=== PATIENT | male | born 1960 | race Caucasian/White ===

== ENCOUNTER → 2018-02-09 | Outpatient (CLI) | payer BC ==
[~2018-02-09] MED LIST: ASPIR 8181 MG PO; ASPIRIN EC81 MG PO; FENOGLIDE120 MG PO; GABAPENTIN300 MG PO; GLIPIZIDE10 MG PO; HYDROCHLOROTHIA25 MG PO; LANTUS100 UNIT/1 SQ; LANTUS100 UNITS/ SQ; LEVOTHYROXINE137 MCG PO; LEVOTHYROXINE150 MCG PO; LISINOPRIL-HCT1 EAC2 PO; METFORMIN HCL500 M2 PO; METFORMIN HCL500 MG PO; METOPROLOL ER PO; METOPROLOL SUCC50 MG PO; METOPROLOL TART25 MG PO; MONTELUKAST SOD10 MG PO; NEURONTIN300 MG PO; NEXIUM40 MG PO; OMEPRAZOLE20 MG PO; OMEPRAZOLE40 MG PO; PEPCID20 MG PO; PRISTIQ ER50 MG PO; REGLAN10 MG PO; SIMVASTATIN20 MG PO; SYN112 PO; ZOLOFT50 MG PO
--- NOTE | 2018-02-09 11:48 | Diagnostic Imaging Report ---
PROCEDURE: Frontal and lateral views of the chest. COMPARISON: Patients [facility], , CHEST 2 VIEWS, 03/21/2016, 12:10. INDICATIONS: PNEUMONIA FINDINGS: Lines/tubes: None. Lungs: The lungs are well inflated and clear. There is no evidence of pneumonia or pulmonary edema. Pleura: There is no pleural effusion or pneumothorax. Heart and mediastinum: The heart and the mediastinum are normal. Bones: No acute bony abnormality. Mild thoracic DISH. IMPRESSION: 1. No acute cardiopulmonary disease. Ras White M.D. Dictated by: Ras White M.D. on 02/09/2018 at 11:50 Electronically approved by: Ras White M.D. on 02/09/2018 at 11:50
== END ==
LOC: RAD 10:32
PROVIDERS: ATTEND Family Medicine
DX: J18.9 Pneumonia, unspecified organism (principal)
CPT/HCPCS: 71046

== ENCOUNTER 2018-09-29 14:19 | Emergency (ER) | payer BC ==
[~2018-09-29] VITALS: Ht 177.8 cm; Wt 117.9 kg
--- OUTSIDE RECORDS SUMMARY | 2018-09-29 14:22 | XMS REPORT ---
Author Author [facility] Address Unknown Phone Unavailable Care Team Providers Care Seamless Tube Drawer Name Role Phone SABRINA KING Unavailable Unavailable Problems This patient has no known problems. Allergies, Adverse Reactions, Alerts This patient has no known allergies or adverse reactions. Medications This patient has no known medications. Results Test Description Test Time Test Comments Text Results Atomic Results Result Comments CHEST 2 VIEWS [place] [address] Patient Name: HERNANDEZ DE LOS SANTOS MR #: [id number] : 1960 Age/Sex: 57/M Req #: [id number] Adm Physician: Ordered by: CHRISTINE ROMO, SABRINA Moore MD Report #: [id number] Location: RAD Room/Bed: Procedure: [id number] DX/CHEST 2 VIEWS Exam Date: 02/09/18 Exam Time: 1035 REPORT STATUS: Signed PROCEDURE: Frontal and lateral views of the chest. COMPARISON: [facility], , CHEST 2 VIEWS, 03/21/2016, 12:10. INDICATIONS: PNEUMONIA FINDINGS: Lines/tubes: None. Lungs: The lungs are well inflated and clear. There is no evidence of pneumonia or pulmonary edema. Pleura: There is no pleural effusion or pneumothorax. Heart and mediastinum: The heart and the mediastinum are normal. Bones: No acute bony abnormality. Mild thoracic DISH. IMPRESSION: 1. No acute cardiopulmonary disease. Ras Davison M.D. Dictated by: Ras Davison M.D. on 02/09/2018 at 11:50 Electronically approved by: Ras Davison M.D. on 02/09/2018 at 11:50 Dictated By: CELESTINE DAVISON MD, MD 1150 Transcribed By: FELIPE on 02/09/18 1150 COPY TO: SABRINA KING
[2018-09-29 15:18] LABS: STREPTOCOCCUS GRP A ANTIGEN NEGATIVE (NEGATIVE)
[2018-09-29 15:28] LABS: INFLUENZAE A&B ANTIGEN (RAPID) NEGATIVE (NEGATIVE)
[2018-09-29] MEDS ORDERED: IPRATROPIUM BROMIDE 0.02% 2.5 ML NEB NEB STA (16:26)
[2018-09-29] MEDS ORDERED: ALBUTEROL SULF 0.083% NEB SOLN 3 ML NEB NEB STA (16:26)
[2018-09-29] MEDS ORDERED: DEXAMETHASONE SOD PHOS 10 MG/1 ML VIAL IM ONE (16:30)
--- NOTE | 2018-09-29 16:52 | Diagnostic Imaging Report ---
EXAMINATION: PA and lateral views of the chest. COMPARISON: 02/09/2018 CLINICAL HISTORY: Cough DISCUSSION: Lungs are well-inflated. No focal airspace consolidation, pleural effusion, or pneumothorax. Cardiomediastinal contour and pulmonary vasculature are within normal limits. No acute osseous abnormalities. IMPRESSION: No acute cardiopulmonary abnormalities. Signed by: Dr. Carson Chauhan M.D. on 09/29/2018 4:49 PM
[2018-09-29 17:39] VITALS: BP 118/88
== END 2018-09-29 17:38 | disposition home or self-care (01) ==
LOC: ER 14:19
DX: R50.9 Fever, unspecified (principal); R05 Cough; J20.9 Acute bronchitis, unspecified
CPT/HCPCS: 71046; 83518; 87070; 87400; 99283; J1100

== ENCOUNTER 2018-10-02 09:46 | Inpatient (IN) | payer BC, OTHER ==
[2018-10-02] VITALS (8 sets, daily range): BP systolic 98–115; BP diastolic 64–72
[~2018-10-02] VITALS: Ht 177.8 cm; Wt 128.8 kg
[2018-10-02] MEDS ORDERED: SODIUM CHLORIDE 0.9% 1000ML 1,000 ML IV SCH (10:15)
[2018-10-02] MEDS: SODIUM CHLORIDE 0.9% 1000ML 1,000 ML IV SCH ×5 (11:12→20:40)
--- NOTE | 2018-10-02 11:13 | NUR ---
UPDATED PT/FM PLAN OF CARE.
[2018-10-02] MEDS ORDERED: ALBUTEROL/IPRATROPIUM 3 ML NEB NEB ONE (11:15)
--- NOTE | 2018-10-02 11:57 | Diagnostic Imaging Report ---
EXAM: CT Chest WITHOUT contrast INDICATION: Hemoptysis COMPARISON: 09/29/2018 radiograph, no report available TECHNIQUE: The Chest was scanned utilizing a multidetector helical scanner without the use of IV contrast. Coronal and sagittal reformations were obtained. Reformatted axial MIP images were obtained and reviewed. IV CONTRAST: None COMPLICATIONS: None RADIATION DOSE: Total DLP: 630 mGy*cm Estimated effective dose: (DLP x 0.015 x size factor) mSv CTDIvol has been reviewed. It is below the limits set by the Radiation Protocol Committee (RPC). Appropriate CT dose reduction techniques were utilized. FINDINGS: Lines and Tubes: None. Lower Neck: The visualized thyroid gland is grossly unremarkable with no suspicious or significant nodule identified. Heart and Great Vessels: The aorta and main pulmonary artery measure 37 and 32 mm. respectively. No pericardial effusion. Minimal coronary vascular calcifications, most notably LAD. Lymph Nodes: Small mediastinal lymph nodes not enlarged by size criteria. The hilar regions are sub-optimally evaluated given lack of IV contrast. Lungs: There is no pneumothorax or pleural effusion. Trachea and central bronchi are unremarkable. There is a 68 x 46 x 81 mm focal masslike area of consolidation with air bronchograms in the medial aspect of the right lower lobe. Superimposed scattered mild groundglass and linear opacities as well as septal thickening are present in the lung bases, asymmetric to the right. Upper abdomen: Hepatic steatosis. Presumed partially visualized atrophic right kidney. Bones and Soft Tissues: Degenerative changes spine. Gynecomastia. IMPRESSION: 1. Focal masslike area of consolidation with air bronchograms medial aspect right lower lobe presumably pneumonia. This is not well appreciated on 09/29/2018 radiograph, presumably due to retrocardiac/paraspinal position. Clinical/laboratory correlation and short interval CT follow-up recommended as underlying malignancy difficult to exclude. 2. Hepatic steatosis. 3. Gynecomastia. Signed by: Dr. Jacob Billingsley MD on 10/02/2018 11:54 AM
[2018-10-02] MEDS ORDERED: CEFTRIAXONE SOD 1 GM VIAL IV SCH (12:00)
[2018-10-02] MEDS ORDERED: CEFTRIAXONE SOD 1 GM/NS 50 ML 50 ML IV SCH (12:00)
[2018-10-02] MEDS ORDERED: AZITHROMYCIN 500MG/NS 250 ML 250 ML IV ONE (12:00)
[2018-10-02] MEDS ORDERED: DEXTROSE 50% SYRINGE 50 ML IV PRN (12:00)
[2018-10-02] MEDS ORDERED: LEVOFLOXACIN 750MG/DEXTROSE PREMIX BAG 150ML IV SCH (12:00)
--- NOTE | 2018-10-02 12:30 | NUR ---
[facility] called for transport.
[2018-10-02] MEDS: IPRATROPIUM BROMIDE 0.02% 2.5 ML NEB NEB SCH ×2 (12:37→19:25)
[2018-10-02] MEDS ORDERED: LEVOFLOXACIN 750MG/D5W 150ML 150 ML IV SCH ×2 (13:00→15:00)
--- NOTE | 2018-10-02 13:00 | NUR ---
per md, hold off intubation at this time. concern pt will drop bp more. pt to transfer to [facility] to icu and stat bipap 25/04 @ 40% with rate of 14. per md to hold off on pressors to see if bp comes up after 4th liter bolus.
--- NOTE | 2018-10-02 13:22 | NUR ---
hand off report to [facility].
--- NOTE | 2018-10-02 13:36 | NUR ---
leaving for [facility]
[2018-10-02 14:47] LABS: ABG PCO2 29 mmHg (41-51); ABG PH 7.38 (7.31-7.41); ABG PO2 105 mmHg (80-105)
[2018-10-02 14:48] LABS: ABG HCO3 17 mmol/L (23-28)
[2018-10-02] MEDS ORDERED: ALBUTEROL SULF 0.083% NEB SOLN 3 ML NEB NEB SCH (15:00)
[2018-10-02] MEDS ORDERED: HYDROCORTISONE SOD SUCCINATE 100 MG VIAL IV NR (16:00)
[2018-10-02 16:25] LABS: BASOPHILS # (AUTO) 0.1 (0.0-0.1); BASOPHILS % 0.3 % (0.0-1.0); EOSINOPHILS % 0.1 % (0.0-6.0); HEMATOCRIT 30.1 % (38.2-49.6); HEMOGLOBIN 10.4 g/dL (14.0-18.0); LYMPHOCYTES # (AUTO) 1.4 (1.0-3.2); LYMPHOCYTES % 9.1 % (18.0-39.1); MEAN CORPUSCULAR HEMOGLOBIN 31.7 pg (28-32); MEAN CORPUSCULAR HGB CONC 34.6 g/dL (31-35); MEAN CORPUSCULAR VOLUME 91.8 fL (81-99); MONOCYTES % 6.4 % (4.4-11.3); NEUTROPHILS # (AUTO) 13.2 (2.1-6.9); NEUTROPHILS % 83.6 % (38.7-80.0); PLATELET COUNT 144 x10e3/uL (140-360); RED BLOOD COUNT 3.28 x10e6/uL (4.3-5.7); RED CELL DISTRIBUTION WIDTH 13.4 % (11.7-14.4)
[2018-10-02] MEDS: METOCLOPRAMIDE HCL 10 MG TAB PO SCH ×2 (16:25→20:21)
[2018-10-02] MEDS: GABAPENTIN 300 MG CAP PO SCH (16:25)
[2018-10-02] MEDS ORDERED: INSULIN DETEMIR 100 UNIT/ML PEN SQ SCH (17:00)
--- NOTE | 2018-10-02 17:02 | History and Physical ---
CHIEF COMPLAINT: Hemoptysis. HISTORY OF PRESENT ILLNESS: The patient is a 58-year-old man. He reports some dyspnea and cough for several days. He went to the emergency department on the and had a negative chest x-ray. He received some antibiotics but continued to have symptoms. Yesterday he started having hemoptysis. He went to the [facility] emergency department and had a CT scan of the chest that showed a lower lobe pneumonia. PAST MEDICAL HISTORY: 1. Diabetes requiring insulin. 2. History of pneumonia in the past. 3. Hypertension. 4. Multiple myeloma. 5. Hypothyroidism. PAST SURGICAL HISTORY: Noncontributory. SOCIAL HISTORY: He quit smoking 3 years ago. He was previously a drinker but has not been drinking actively. FAMILY HISTORY: Family history is significant for diabetes, hypertension and cancer. REVIEW OF SYSTEMS: He does not report any fevers. He does not have headache or neck pain. There is no sore throat. He has no swollen glands. He does not report any chest pain. He does note some cough and difficulty breathing. He had some hemoptysis. He denies any nausea or vomiting. He is not having any leg edema. PHYSICAL EXAMINATION: VITAL SIGNS: The patient is afebrile. The pulse is 114, and the respiratory rate is 26. The temperature was 101.3. HEENT: Examination shows no facial swelling or erythema. The oropharynx is normal. LYMPHATIC: Examination shows no submandibular, cervical or supraclavicular adenopathy. CARDIOVASCULAR: Exam reveals a regular rate and rhythm with a normal S1 and S2. RESPIRATORY: Auscultation of the lungs reveals decreased breath sounds at the bases. There is no wheezing. ABDOMEN: Soft and nontender. There is no rebound or guarding. EXTREMITIES: Examination shows no leg edema or calf tenderness. There is no cyanosis or clubbing. CUTANEOUS: Examination shows no rashes. NEUROLOGIC: Exam shows no focal abnormalities. LABORATORY DATA: The blood gas is 7.33, 29, 105 and 17. Sodium is 137 with a potassium of 3.4 and a chloride of 99. The BUN to creatinine ratio is 24 to 1.6. The total bilirubin and liver function tests are within normal limits. The CBC shows a white blood cell count of 16 with a hemoglobin of 13.2 and a platelet count of 183. IMPRESSION: 1. Community-acquired pneumonia with severe sepsis present on admission. 2. Hemoptysis. 3. Chronic renal failure stage 3. 4. Diabetes requiring insulin. 5. Moderate to severe obesity. PLAN: 1. The patient will receive IV antibiotics. 2. Panculture patient and follow lactate levels. 3. IV fluids. 4. Monitor blood counts because of hemoptysis. 5. Continue to monitor blood sugar and give insulin as needed. Job#: [id number] EV
[2018-10-02 17:12] LABS: CREATINE KINASE 89 IU/L (30-200)
[2018-10-02 18:26] LABS: ANISOCYTOSIS SLIG; EOSINOPHILS % (MANUAL) 1 % (0-7); LYMPHOCYTES % (MANUAL) 6 % (19-48); METAMYELOCYTES % (MANUAL) 1 % (0-0); MONOCYTES % (MANUAL) 7 % (3.4-9.0); NEUTROPHILS % (MANUAL) 84 % (40-74); POIKILOCYTOSIS SLIGHT; PROMYELOCYTES % (MANUAL) 1 % (0-0); STOMATOCYTES SLIGHT
[2018-10-02 18:27] LABS: PLATELET ESTIMATE ADEQUATE; PLATELET MORPHOLOGY COMMENT FEW LARGE; RBC MORPHOLOGY COMMENT ABNORMAL
[2018-10-02] MEDS: INSULIN REGULAR, HUMAN 100 UNIT/1 ML 3ML VIAL SQ SCH ×2 (19:00→20:39)
[2018-10-02] MEDS: INSULIN DETEMIR 100 UNIT/ML PEN SQ SCH (19:01)
[2018-10-02] MEDS: CEFTRIAXONE SOD 1 GM/NS 50 ML 50 ML IV SCH (20:21)
[2018-10-03] VITALS (22 sets, daily range): BP systolic 87–151; BP diastolic 56–94
[2018-10-03] MEDS: IPRATROPIUM BROMIDE 0.02% 2.5 ML NEB NEB SCH ×4 (01:05→19:16)
[2018-10-03 05:27] LABS: BASOPHILS # (AUTO) 0.1 (0.0-0.1); BASOPHILS % 0.3 % (0.0-1.0); EOSINOPHILS % 0.1 % (0.0-6.0); HEMATOCRIT 28.5 % (38.2-49.6); HEMOGLOBIN 9.7 g/dL (14.0-18.0); LYMPHOCYTES # (AUTO) 2.8 (1.0-3.2); LYMPHOCYTES % 18.3 % (18.0-39.1); MEAN CORPUSCULAR HEMOGLOBIN 31.1 pg (28-32); MEAN CORPUSCULAR VOLUME 91.3 fL (81-99); MONOCYTES % 6.4 % (4.4-11.3); NEUTROPHILS # (AUTO) 11.4 (2.1-6.9); PLATELET COUNT 136 x10e3/uL (140-360); RED BLOOD COUNT 3.12 x10e6/uL (4.3-5.7); RED CELL DISTRIBUTION WIDTH 13.2 % (11.7-14.4)
[2018-10-03] MEDS: LEVOTHYROXINE SODIUM 75 MCG TAB PO SCH (05:38)
[2018-10-03 05:40] LABS: CREATINE KINASE 87 IU/L (30-200)
[2018-10-03 05:59] LABS: ALANINE AMINOTRANSFERASE 22 IU/L (0-55); ALBUMIN 2.7 g/dL (3.5-5.0); ALBUMIN/GLOBULIN RATIO 0.8 (0.8-2.0); ALKALINE PHOSPHATASE 35 IU/L (40-150); BLOOD UREA NITROGEN 17 mg/dL (7-26); BUN/CREATININE RATIO 17 (6-25); CALCIUM 8.1 mg/dL (8.4-10.2); CARBON DIOXIDE 24 mmol/L (22-29); CHLORIDE 106 mmol/L (98-107); CREATININE, SERUM 1.02 mg/dL (0.72-1.25); EST GLOMERULAR FILTRATION RATE > 60 ML/MIN (60-); GLUCOSE 127 mg/dL (74-118); SODIUM 139 mmol/L (136-145)
[2018-10-03] MEDS ORDERED: LEVOTHYROXINE SODIUM 150 MCG PO SCH (06:00)
--- NOTE | 2018-10-03 06:31 | Diagnostic Imaging Report ---
CHEST SINGLE (PORTABLE), 10/03/2018 6:00 AM Technique: CHEST SINGLE (PORTABLE) Comparison: 09/29/2018, CT 10/02/2018 Clinical history: Pneumonia Findings: See Impression Impression: Limited by soft tissue attenuation and portable technique 1. Normal cardiomediastinal silhouette for technique. 2. Medial right lower lobe opacity in keeping with history of pneumonia. Mild left basilar opacity may reflect additional site of infection or atelectasis. 3. No effusion or pneumothorax. Signed by: Dr Traci Sharma MD on 10/03/2018 6:27 AM
[2018-10-03 06:51] LABS: BAND NEUTROPHILS % (MANUAL) 4 %; EOSINOPHILS % (MANUAL) 1 % (0-7); LYMPHOCYTES % (MANUAL) 16 % (19-48); MONOCYTES % (MANUAL) 5 % (3.4-9.0); NEUTROPHILS % (MANUAL) 72 % (40-74); PLATELET ESTIMATE ADEQUATE; PLATELET MORPHOLOGY COMMENT NORMAL; RBC MORPHOLOGY COMMENT NORMAL
--- NOTE | 2018-10-03 07:00 | NUR ---
left AC 20g p.iv removed as it was occluded. pt tolerated removal of p.iv well.
[2018-10-03] MEDS ORDERED: DILTIAZEM HCL 125 ML IV SCH (07:30)
[2018-10-03] MEDS ORDERED: POTASSIUM CHLORIDE 20 MEQ TAB CR PO STA (07:47)
[2018-10-03] MEDS: METOPROLOL TARTRATE 25 MG TAB PO SCH (08:00)
[2018-10-03] MEDS: INSULIN REGULAR, HUMAN 100 UNIT/1 ML 3ML VIAL SQ SCH ×4 (08:23→21:06)
[2018-10-03] MEDS: CEFTRIAXONE SOD 1 GM/NS 50 ML 50 ML IV SCH (08:24)
[2018-10-03] MEDS: AZITHROMYCIN 500MG/NS 250 ML 250 ML IV SCH (08:24)
[2018-10-03] MEDS: ASPIRIN 81 MG CHEW TAB PO SCH (08:24)
[2018-10-03] MEDS: METOCLOPRAMIDE HCL 10 MG TAB PO SCH ×4 (08:24→21:06)
[2018-10-03] MEDS: PANTOPRAZOLE SOD 40 MG TABEC PO SCH (08:25)
[2018-10-03] MEDS: GABAPENTIN 300 MG CAP PO SCH ×2 (08:25→17:03)
[2018-10-03] MEDS: MONTELUKAST SODIUM 10 MG TAB PO SCH (09:00)
[2018-10-03] MEDS ORDERED: PANTOPRAZOLE SOD 40 MG TABEC PO SCH (09:00)
[2018-10-03] MEDS: ENOXAPARIN SOD INJ 40 MG/0.4 ML SYR SC SCH ×2 (09:03→21:06)
[2018-10-03] MEDS: SERTRALINE HCL 50 MG TAB PO SCH (09:03)
[2018-10-03] MEDS: SIMVASTATIN 20 MG TAB PO SCH (09:03)
[2018-10-03] MEDS: INSULIN DETEMIR 100 UNIT/ML PEN SQ SCH (09:08)
[2018-10-03] MEDS ORDERED: DILTIAZEM HCL 5 MG/ML 5 ML VIAL IV ONE (09:15)
[2018-10-03] MEDS ORDERED: AMIODARONE HCL 360MG 200 ML IV SCH ×2 (09:45→12:00)
[2018-10-03] MEDS ORDERED: AMIODARONE HCL 100 ML IV ONE (10:30)
[2018-10-03] MEDS ORDERED: AMIODARONE 900MG 500 ML IV SCH (10:30)
[2018-10-03 12:11] LABS: CREATINE KINASE 107 IU/L (30-200)
--- NOTE | 2018-10-03 13:15 | NUR ---
Dr Walker to bedside; orders to continue Amiodarone gtt for 18 hours and obtain EKG. Patient supine in bed, will continue to monitor.
--- NOTE | 2018-10-03 13:44 | NUR ---
Per LARY French. Amiodarone loading dose given and continuous gtt started at 1030. Pharmacy contacted and order now correct in eMAR.
--- NOTE | 2018-10-03 13:51 | NUR ---
Reported blood culture gram negative rods x2 bottles to Dr Calvin Sevilla via phone.
--- NOTE | 2018-10-03 14:17 | Consultation ---
DATE OF CONSULTATION: October 03, 2018 CARDIOLOGY CONSULTATION ATTENDING PHYSICIAN: Dr. Mckeon. Thank you so much for asking to see this nice man in consultation. Mr. Tesfaye is a very complex 58-year-old man known to our service from the past. CHIEF COMPLAINT: He presented to the emergency room on the with complaint of hemoptysis. HISTORY OF PRESENT ILLNESS: Patient report he has had cough and overnight on the and , he noticed he was coughing up blood. When he awoke in the morning on the , he found he had significant amount of blood in the bed with him. PAST MEDICAL HISTORY: Complex with longstanding type 2 adult onset diabetes. He has known of having multiple myeloma for some years. He reports currently receiving no treatment. PREVIOUS HOME MEDICATIONS: Include Pristiq, hydrochlorothiazide, metformin, Reglan, simvastatin, fenofibrate, glipizide, levothyroxine, and lisinopril and hydrochlorothiazide. OTHER PAST MEDICAL HISTORY: He reports that he was hospitalized for pneumonia twice earlier in 2018. Once he reports he was on ventilator in a hospital in [place]. Records available to me indicate that he had cardiac catheterization in 2007 showing no coronary artery disease and nuclear study on 2012 confirmed the same with EF 60% to 65%. PERSONAL/SOCIAL HISTORY: The patient has significant history of smoking, but stopped about 15 years ago. He used to be a heavy drinker, but reports that now he does not drink at all. Lives alone. FAMILY HISTORY: Mother had diabetes and hypertension. Father had cancer and hypertension. PHYSICAL EXAMINATION GENERAL: At this time shows an obese white man who is edentulous. HEAD, EYES, EARS, NOSE, THROAT: Unremarkable. THORAX: Heart sounds, S1 and S2 are equal and regular. Pulse 90 and regular. No murmurs. LUNGS: Relatively clear. ABDOMEN: Protuberant. Normal bowel sounds. EXTREMITIES: No cyanosis, clubbing, or edema. Admitting EKG showed sinus tachycardia, rate of 130. This morning's EKG showed atrial fibrillation with rate of 149. He is now converted to sinus rhythm. PERTINENT LABORATORY STUDIES: Showed an admitting glucose of 332, admitting lactic acid of 71 with normal being at 4.5 and 19.8. Troponins are normal x3. Chest x-ray shows right lower lobe opacity. His protein and albumin are both low and sputum at this time showing gram-positive cocci in pairs. ASSESSMENT 1. Pneumonia. 2. Type 2 adult onset diabetes. 3. History of multiple myeloma. 4. Atrial fibrillation converted to sinus rhythm with loading drip of amiodarone. His echocardiogram shows normal left ventricular function, ejection fraction 65% to 70%. No pericardial fluid. We will continue loading with amiodarone and monitor his cardiac status closely. His prognosis remains guarded. Thank you for asking me to see him in consultation. Job#: [id number] AKU cc:LOGAN NO MD
--- NOTE | 2018-10-03 15:01 | Progress Note ---
DATE: PULMONARY PROGRESS NOTE SUBJECTIVE: The patient had sudden onset of rapid atrial fibrillation this morning. He started on a Cardizem drip. He then started amiodarone and converted back to normal sinus rhythm. The patient has had elevated blood sugars and received long-acting insulin this morning. OBJECTIVE VITAL SIGNS: The blood pressure is 100/70 with a pulse of 81. He is now in normal sinus rhythm. His respiratory rate is 20 and his saturation is 98% on 4 liters. HEENT: Shows no facial swelling or erythema. LYMPHATIC: Shows no submandibular, cervical, or supraclavicular adenopathy. CARDIAC: Regular rate and rhythm with normal S1 and S2. There are no murmurs or rubs. LUNGS: Auscultation of lungs reveals decreased breath sounds in the right side. ABDOMEN: Soft and nontender. There is no rebound or guarding. EXTREMITIES: Show no leg edema or calf tenderness. IMPRESSION 1. Gram-negative pneumonia with severe sepsis present on admission. 2. Acute onset of atrial fibrillation with rapid ventricular response. 3. Diabetes, out of control. 4. Acute kidney injury. 5. Severe obesity. PLAN 1. Switch antibiotics to Merrem and Zithromax. 2. Adjust antibiotics once culture results are available. 3. Complete amiodarone drip and switch to p.o. medications upon completion. 4. Continue long-acting insulin with sliding scale before meals and adjust as needed. 5. Swallowing evaluation to rule out recurrent aspiration. 6. Replete potassium. Greater than 35 minutes spent in direct critical care time during 2 separate visits, one at 8 a.m. and one at 2 30 p.m. Case discussed with the nurse, patient, and Dr. Walker. Job#: [id number] UMA
--- NOTE | 2018-10-03 16:30 | NUR ---
Amiodarone gtt to ordered rate.
--- NOTE | 2018-10-03 19:00 | NUR ---
Bedside report received from Magaly BARTH. Pt received resting in bed, AAOx4, no pain or discomfort reported by the pt, no signs of distress noted at this time. Bed in lowest and locked position, call light in reach of the pt. Treatment plan for the night discussed with the pt.
[2018-10-03] MEDS: MEROPENEM 1GM 100 ML IV SCH (21:06)
[2018-10-04] VITALS (14 sets, daily range): BP systolic 110–158; BP diastolic 55–99
[2018-10-04] MEDS: ALBUTEROL SULF 0.083% NEB SOLN 3 ML NEB NEB PRN ×2 (00:30→18:55)
[2018-10-04] MEDS: IPRATROPIUM BROMIDE 0.02% 2.5 ML NEB NEB SCH ×4 (00:30→18:55)
[2018-10-04 04:40] LABS: BASOPHILS % 0.2 % (0.0-1.0); EOSINOPHILS # (AUTO) 0.5 (0.0-0.4); EOSINOPHILS % 3.7 % (0.0-6.0); HEMATOCRIT 28.9 % (38.2-49.6); LYMPHOCYTES # (AUTO) 2.6 (1.0-3.2); LYMPHOCYTES % 20.8 % (18.0-39.1); MEAN CORPUSCULAR HEMOGLOBIN 31.2 pg (28-32); MEAN CORPUSCULAR HGB CONC 34.6 g/dL (31-35); MONOCYTES # (AUTO) 0.5 (0.2-0.8); MONOCYTES % 4.1 % (4.4-11.3); NEUTROPHILS # (AUTO) 8.8 (2.1-6.9); NEUTROPHILS % 70.1 % (38.7-80.0); PLATELET COUNT 142 x10e3/uL (140-360); RED BLOOD COUNT 3.21 x10e6/uL (4.3-5.7); RED CELL DISTRIBUTION WIDTH 13.1 % (11.7-14.4)
[2018-10-04 05:02] LABS: ALANINE AMINOTRANSFERASE 22 IU/L (0-55); ALBUMIN 2.7 g/dL (3.5-5.0); ALBUMIN/GLOBULIN RATIO 0.7 (0.8-2.0); ALKALINE PHOSPHATASE 46 IU/L (40-150); ANION GAP 13.2 mmol/L (8-16); BLOOD UREA NITROGEN 17 mg/dL (7-26); BUN/CREATININE RATIO 16 (6-25); CALCIUM 8.3 mg/dL (8.4-10.2); CARBON DIOXIDE 22 mmol/L (22-29); CHLORIDE 104 mmol/L (98-107); CREATININE, SERUM 1.04 mg/dL (0.72-1.25); EST GLOMERULAR FILTRATION RATE > 60 ML/MIN (60-); GLUCOSE 140 mg/dL (74-118); POTASSIUM 3.2 mmol/L (3.5-5.1); SODIUM 136 mmol/L (136-145)
--- NOTE | 2018-10-04 06:21 | Diagnostic Imaging Report ---
CHEST SINGLE (PORTABLE), 10/04/2018 6:30 AM Technique: CHEST SINGLE (PORTABLE) Comparison: Previous day Clinical history: Pneumonia Findings: See Impression Impression: Limited by portable technique, soft tissue attenuation and motion 1. Stable cardiomediastinal silhouette 2. Medial right basilar opacity in keeping with history of infection. Possible basilar atelectasis or infection. Signed by: Dr Traci Sharma MD on 10/04/2018 6:18 AM
[2018-10-04] MEDS: METOCLOPRAMIDE HCL 10 MG TAB PO SCH ×4 (06:27→20:16)
[2018-10-04] MEDS: LEVOTHYROXINE SODIUM 75 MCG TAB PO SCH (06:27)
[2018-10-04] MEDS: MEROPENEM 1GM 100 ML IV SCH ×3 (06:27→21:46)
[2018-10-04] MEDS: INSULIN REGULAR, HUMAN 100 UNIT/1 ML 3ML VIAL SQ SCH ×4 (06:28→20:16)
--- NOTE | 2018-10-04 07:00 | NUR ---
Bedside report given to Stephany BARTH. Pt AAOx4. Pt reports no pain or discomfort. No signs of distress noted. Bed in lowest and locked position, pt has call light in his hand.
[2018-10-04] MEDS: ASPIRIN 81 MG CHEW TAB PO SCH (07:57)
[2018-10-04] MEDS: PANTOPRAZOLE SOD 40 MG TABEC PO SCH (07:57)
[2018-10-04] MEDS: AZITHROMYCIN 500MG/NS 250 ML 250 ML IV SCH (07:57)
[2018-10-04] MEDS: METOPROLOL TARTRATE 25 MG TAB PO SCH (07:57)
[2018-10-04] MEDS: MONTELUKAST SODIUM 10 MG TAB PO SCH (07:57)
[2018-10-04] MEDS: SIMVASTATIN 20 MG TAB PO SCH (07:57)
[2018-10-04] MEDS: ENOXAPARIN SOD INJ 40 MG/0.4 ML SYR SC SCH ×2 (07:57→20:16)
[2018-10-04] MEDS: GABAPENTIN 300 MG CAP PO SCH ×2 (07:57→16:23)
[2018-10-04] MEDS: SERTRALINE HCL 50 MG TAB PO SCH (07:57)
[2018-10-04] MEDS: INSULIN DETEMIR 100 UNIT/ML PEN SQ SCH (08:55)
--- NOTE | 2018-10-04 10:15 | NUR ---
RECEIVED PT FROM ICU 195, PT IN STABLE CONDITION AMBULATING TO BATHROOM. ORIENTED TO ROOM NO QUESTIONS VERBALIZED.
[2018-10-04] MEDS ORDERED: HYDROCORTISONE SOD SUCCINATE 100 MG VIAL IV ONE (10:30)
[2018-10-04] MEDS ORDERED: SODIUM CHLORIDE 0.9% 250ML 250 ML ONE (13:38)
--- NOTE | 2018-10-04 13:40 | NUR ---
NOTIFIED MD MORALES OF NO PO AMIODERONE ORDERED AND OF K+ OF 3.2 RECEIVED ORDERS
[2018-10-04] MEDS: AMIODARONE HCL 200 MG TAB PO SCH ×2 (13:50→21:46)
[2018-10-04] MEDS ORDERED: POTASSIUM CHLORIDE 20 MEQ TAB CR PO ONE (14:00)
--- NOTE | 2018-10-04 19:00 | NUR ---
Report received. Assumed care. Assessment done. See interventions.
[2018-10-04] MEDS ORDERED: INSULIN DETEMIR 100 UNIT/ML PEN SQ SCH (21:00)
[2018-10-05] VITALS (8 sets, daily range): BP systolic 134–153; BP diastolic 74–94
[2018-10-05] MEDS: IPRATROPIUM BROMIDE 0.02% 2.5 ML NEB NEB SCH ×4 (00:15→19:26)
[2018-10-05] MEDS: ALBUTEROL SULF 0.083% NEB SOLN 3 ML NEB NEB PRN (00:15)
[2018-10-05 04:46] LABS: BASOPHILS % 0.3 % (0.0-1.0); EOSINOPHILS # (AUTO) 0.3 (0.0-0.4); EOSINOPHILS % 2.9 % (0.0-6.0); HEMOGLOBIN 9.7 g/dL (14.0-18.0); LYMPHOCYTES # (AUTO) 2.5 (1.0-3.2); LYMPHOCYTES % 25.8 % (18.0-39.1); MEAN CORPUSCULAR HEMOGLOBIN 31.2 pg (28-32); MEAN CORPUSCULAR HGB CONC 34.6 g/dL (31-35); MONOCYTES # (AUTO) 0.4 (0.2-0.8); MONOCYTES % 4.6 % (4.4-11.3); NEUTROPHILS # (AUTO) 6.1 (2.1-6.9); NEUTROPHILS % 64.5 % (38.7-80.0); PLATELET COUNT 153 x10e3/uL (140-360); RED BLOOD COUNT 3.11 x10e6/uL (4.3-5.7); RED CELL DISTRIBUTION WIDTH 12.9 % (11.7-14.4)
[2018-10-05 05:08] LABS: ALANINE AMINOTRANSFERASE 28 IU/L (0-55); ALBUMIN 2.7 g/dL (3.5-5.0); ALBUMIN/GLOBULIN RATIO 0.7 (0.8-2.0); ALKALINE PHOSPHATASE 50 IU/L (40-150); ANION GAP 11.4 mmol/L (8-16); BLOOD UREA NITROGEN 14 mg/dL (7-26); BUN/CREATININE RATIO 14 (6-25); CALCIUM 8.5 mg/dL (8.4-10.2); CARBON DIOXIDE 23 mmol/L (22-29); CHLORIDE 105 mmol/L (98-107); CREATININE, SERUM 1.01 mg/dL (0.72-1.25); EST GLOMERULAR FILTRATION RATE > 60 ML/MIN (60-); GLUCOSE 177 mg/dL (74-118); POTASSIUM 3.4 mmol/L (3.5-5.1); SODIUM 136 mmol/L (136-145)
--- NOTE | 2018-10-05 05:16 | NUR ---
Assisted to the shower to bathe. Independantly. Advised to call when out so he can be placed back on monitoring.
[2018-10-05] MEDS: AMIODARONE HCL 200 MG TAB PO SCH ×3 (05:44→22:03)
[2018-10-05] MEDS: LEVOTHYROXINE SODIUM 75 MCG TAB PO SCH (05:44)
[2018-10-05] MEDS: MEROPENEM 1GM 100 ML IV SCH ×3 (05:44→22:03)
[2018-10-05] MEDS: METOCLOPRAMIDE HCL 10 MG TAB PO SCH ×4 (08:02→21:29)
[2018-10-05] MEDS: AZITHROMYCIN 500MG/NS 250 ML 250 ML IV SCH (08:02)
[2018-10-05] MEDS: ASPIRIN 81 MG CHEW TAB PO SCH (08:02)
[2018-10-05] MEDS: PANTOPRAZOLE SOD 40 MG TABEC PO SCH (08:03)
[2018-10-05] MEDS: ENOXAPARIN SOD INJ 40 MG/0.4 ML SYR SC SCH (08:03)
[2018-10-05] MEDS: SIMVASTATIN 20 MG TAB PO SCH (08:03)
[2018-10-05] MEDS: METOPROLOL TARTRATE 25 MG TAB PO SCH (08:03)
[2018-10-05] MEDS: MONTELUKAST SODIUM 10 MG TAB PO SCH (08:03)
[2018-10-05] MEDS: GABAPENTIN 300 MG CAP PO SCH ×2 (08:03→16:36)
[2018-10-05] MEDS: SERTRALINE HCL 50 MG TAB PO SCH (08:03)
[2018-10-05] MEDS: INSULIN REGULAR, HUMAN 100 UNIT/1 ML 3ML VIAL SQ SCH ×4 (08:04→21:45)
[2018-10-05] MEDS: INSULIN DETEMIR 100 UNIT/ML PEN SQ SCH (08:04)
[2018-10-05] MEDS ORDERED: POTASSIUM CHLORIDE 20 MEQ TAB CR PO ONE (11:30)
--- NOTE | 2018-10-05 11:49 | Progress Note ---
DATE: SUBJECTIVE: The patient was transferred out of the ICU yesterday. He has less dyspnea. He has no hemoptysis. He denies any pain. OBJECTIVE VITAL SIGNS: Stable. HEENT: Shows no facial swelling or erythema. The nasal mucosa is normal. Oropharynx is normal. LYMPHATIC: Shows no submandibular cervical or supraclavicular adenopathy. CARDIAC: Regular rate and rhythm with a normal S1 and S2. There are no murmurs or rubs. LUNGS: Auscultation of lungs shows clear breath sounds bilaterally. There is no wheezing. ABDOMEN: Soft and nontender. There is no rebound or guarding. EXTREMITIES: There is no leg edema or calf tenderness. There is no cyanosis or clubbing. MICROBIOLOGICAL DATA: Blood cultures are growing out Haemophilus; sensitivities are still pending. IMPRESSIONS 1. Haemophilus influenza pneumonia with severe sepsis present on admission. 2. Acute onset of atrial fibrillation with rapid ventricular response. 3. Systolic congestive heart failure. 4. Diabetes, out of control. 5. Severe obesity. PLANS 1. Continue antibiotics and taper, depending on sensitivity results. 2. Continue to adjust diabetic regimen. 3. Anticoagulation and amiodarone for atrial fibrillation. Job#: [id number] ARCELIA
[2018-10-05] MEDS: APIXABAN 5 MG TABLET PO SCH (16:36)
--- NOTE | 2018-10-05 19:00 | NUR ---
RECEIVED REPORT FROM OFF GOING NURSE AT BEDSIDE PT SLEEPING HOWEVER EASY TO AWAKEN, DENIES PAIN AND DISCOMFORTS AT THIS TIME WHEN QUESTIONED.
[2018-10-05] MEDS ORDERED: INSULIN DETEMIR 100 UNIT/ML PEN SQ SCH (21:00)
[2018-10-05] MEDS: GUAIFENESIN/CODEINE 10 ML CUP PO PRN ×3 (23:02→23:07)
[2018-10-06] VITALS (17 sets, daily range): BP systolic 103–212; BP diastolic 70–117
--- NOTE | 2018-10-06 | NUR ---
PT STATES COUGH MUCH BETTER, RESTING WELL WITH TELEVISION ON, EASY TO AROUSE. CALL HAWK IN REACH
[2018-10-06] MEDS: IPRATROPIUM BROMIDE 0.02% 2.5 ML NEB NEB SCH ×3 (02:02→15:05)
--- NOTE | 2018-10-06 02:51 | NUR ---
NO CHANGE IN PT'S STATUS, PT ATE SANDWHICH AND PUDDING FOR SNACK
[2018-10-06 05:04] LABS: BASOPHILS # (AUTO) 0.1 (0.0-0.1); BASOPHILS % 0.5 % (0.0-1.0); EOSINOPHILS # (AUTO) 0.6 (0.0-0.4); EOSINOPHILS % 6.6 % (0.0-6.0); HEMATOCRIT 30.5 % (38.2-49.6); HEMOGLOBIN 10.4 g/dL (14.0-18.0); LYMPHOCYTES # (AUTO) 2.2 (1.0-3.2); LYMPHOCYTES % 23.5 % (18.0-39.1); MEAN CORPUSCULAR HGB CONC 34.1 g/dL (31-35); MONOCYTES # (AUTO) 0.6 (0.2-0.8); MONOCYTES % 6.7 % (4.4-11.3); NEUTROPHILS # (AUTO) 5.6 (2.1-6.9); NEUTROPHILS % 60.1 % (38.7-80.0); PLATELET COUNT 168 x10e3/uL (140-360); RED BLOOD COUNT 3.35 x10e6/uL (4.3-5.7); RED CELL DISTRIBUTION WIDTH 12.9 % (11.7-14.4)
[2018-10-06 05:28] LABS: ALBUMIN 2.7 g/dL (3.5-5.0); ALBUMIN/GLOBULIN RATIO 0.7 (0.8-2.0); ANION GAP 12.6 mmol/L (8-16); CALCIUM 8.8 mg/dL (8.4-10.2); CREATININE, SERUM 1.3 mg/dL (0.72-1.25); POTASSIUM 3.6 mmol/L (3.5-5.1)
[2018-10-06] MEDS: MEROPENEM 1GM 100 ML IV SCH (06:10)
[2018-10-06] MEDS: LEVOTHYROXINE SODIUM 75 MCG TAB PO SCH (06:10)
[2018-10-06] MEDS: AMIODARONE HCL 200 MG TAB PO SCH ×3 (06:10→22:00)
[2018-10-06 06:33] LABS: BAND NEUTROPHILS % (MANUAL) 2 %; EOSINOPHILS % (MANUAL) 7 % (0-7); LYMPHOCYTES % (MANUAL) 30 % (19-48); METAMYELOCYTES % (MANUAL) 1 % (0-0); MICROCYTOSIS RN; MONOCYTES % (MANUAL) 6 % (3.4-9.0); NEUTROPHILS % (MANUAL) 54 % (40-74); PLATELET ESTIMATE ADEQUATE; PLATELET MORPHOLOGY COMMENT NORMAL
[2018-10-06] MEDS: ALBUTEROL SULF 0.083% NEB SOLN 3 ML NEB NEB PRN ×2 (08:05→15:05)
[2018-10-06] MEDS: ASPIRIN 81 MG CHEW TAB PO SCH (08:59)
[2018-10-06] MEDS: APIXABAN 5 MG TABLET PO SCH ×2 (08:59→17:29)
[2018-10-06] MEDS: AZITHROMYCIN 500MG/NS 250 ML 250 ML IV SCH (08:59)
[2018-10-06] MEDS: METOCLOPRAMIDE HCL 10 MG TAB PO SCH ×4 (08:59→21:51)
[2018-10-06] MEDS: SERTRALINE HCL 50 MG TAB PO SCH (09:00)
[2018-10-06] MEDS: SIMVASTATIN 20 MG TAB PO SCH (09:00)
[2018-10-06] MEDS: GABAPENTIN 300 MG CAP PO SCH ×2 (09:00→17:29)
[2018-10-06] MEDS: PANTOPRAZOLE SOD 40 MG TABEC PO SCH (09:00)
[2018-10-06] MEDS: MONTELUKAST SODIUM 10 MG TAB PO SCH (09:00)
[2018-10-06] MEDS ORDERED: INSULIN DETEMIR 100 UNIT/ML PEN SQ SCH ×3 (09:00→21:00)
[2018-10-06] MEDS: GUAIFENESIN/CODEINE 10 ML CUP PO PRN (09:01)
[2018-10-06] MEDS: INSULIN REGULAR, HUMAN 100 UNIT/1 ML 3ML VIAL SQ SCH ×4 (09:03→21:52)
[2018-10-06] MEDS: METOPROLOL TARTRATE 25 MG TAB PO SCH (09:05)
[2018-10-06] MEDS ORDERED: CEFTRIAXONE SOD 1 GM VIAL IV SCH (11:45)
[2018-10-06] MEDS ORDERED: SODIUM CHLORIDE 0.9% 1000ML 1,000 ML IV ONE (11:45)
[2018-10-06] MEDS: CEFTRIAXONE SOD 1 GM/NS 50 ML 50 ML IV SCH (12:24)
--- NOTE | 2018-10-06 12:37 | Progress Note ---
DATE: SUBJECTIVE: The patient has less dyspnea and less cough. He is not febrile. His blood sugars have been in the 200-300 range and he has some polyuria. OBJECTIVE VITAL SIGNS: The blood pressure is 103/94 and the pulse is 67. The O2 saturation is 94%. HEENT: Shows no facial swelling or erythema. The nasal mucosa is normal. CARDIOVASCULAR: Regular rate and rhythm with a normal S1 and S2. There are no murmurs or rubs. LUNGS: Auscultation of the lungs shows clear breath sounds bilaterally. There is no wheezing. ABDOMEN: Soft and nontender. There is no rebound or guarding. EXTREMITIES: Show no leg edema or calf tenderness. LABORATORY DATA: Creatinine has increased to 1.3. Blood sugars have been in the 230-260 range. IMPRESSION 1. Haemophilus influenzae pneumonia with severe sepsis, present on admission. 2. Diabetes, out of control, requiring insulin. 3. New-onset atrial fibrillation with rapid ventricular response. 4. Severe obesity. 5. Hypoalbuminemia. PLAN 1. Continue antibiotics. 2. Increase long-acting insulin and use short-acting insulin as needed. 3. Continue amiodarone and anticoagulation. 4. Hydration and repeat creatinine in the morning. Job#: [id number] PUN
--- NOTE | 2018-10-06 20:45 | NUR ---
PATIENT SITTING UP AT THE SIDE OF THE BED, NO ACUTE DISTRESS OBSERVED, HE DENIES PAIN. ASSISTED WITH ADLS, CALL LIGHT WITHIN EASY REACH.
--- NOTE | 2018-10-06 23:47 | NUR ---
NO ACUTE DISTRESS OBSERVED, DIABETIC SNACKS GIVEN TO THE PATIENT. CALL LIGHT IN EASY REACH, INSTRUCTED TO CALL FOR ASSISTANCE NEEDED.
[2018-10-07 00:05] VITALS: BP 139/65
[2018-10-07] MEDS: CEFTRIAXONE SOD 1 GM/NS 50 ML 50 ML IV SCH (00:52)
--- NOTE | 2018-10-07 02:28 | NUR ---
PATIENT IS ASLEEP, HE'S EASY TO AROUSE. NO RESPIRATORY DISTRESS OBSERVED, CALL LIGHT AND URINAL WITHIN EASY REACH.
[2018-10-07 04:20] VITALS: BP 147/75
[2018-10-07 05:11] LABS: BASOPHILS # (AUTO) 0.1 (0.0-0.1); BASOPHILS % 0.4 % (0.0-1.0); EOSINOPHILS # (AUTO) 0.7 (0.0-0.4); EOSINOPHILS % 5.9 % (0.0-6.0); HEMATOCRIT 33.7 % (38.2-49.6); HEMOGLOBIN 11.6 g/dL (14.0-18.0); LYMPHOCYTES # (AUTO) 2.7 (1.0-3.2); LYMPHOCYTES % 24.3 % (18.0-39.1); MEAN CORPUSCULAR HGB CONC 34.4 g/dL (31-35); MEAN CORPUSCULAR VOLUME 90.1 fL (81-99); MONOCYTES # (AUTO) 0.8 (0.2-0.8); MONOCYTES % 6.7 % (4.4-11.3); NEUTROPHILS # (AUTO) 6.7 (2.1-6.9); NEUTROPHILS % 60.1 % (38.7-80.0); PLATELET COUNT 203 x10e3/uL (140-360); RED BLOOD COUNT 3.74 x10e6/uL (4.3-5.7); RED CELL DISTRIBUTION WIDTH 12.8 % (11.7-14.4)
[2018-10-07 05:36] LABS: ALBUMIN 3.1 g/dL (3.5-5.0); ALBUMIN/GLOBULIN RATIO 0.7 (0.8-2.0); ANION GAP 13.7 mmol/L (8-16); CALCIUM 9.4 mg/dL (8.4-10.2); CREATININE, SERUM 1.24 mg/dL (0.72-1.25); POTASSIUM 3.7 mmol/L (3.5-5.1)
[2018-10-07] MEDS: LEVOTHYROXINE SODIUM 75 MCG TAB PO SCH (06:08)
[2018-10-07 06:09] LABS: BAND NEUTROPHILS % (MANUAL) 4 %; EOSINOPHILS % (MANUAL) 4 % (0-7); LYMPHOCYTES % (MANUAL) 23 % (19-48); MONOCYTES % (MANUAL) 9 % (3.4-9.0); NEUTROPHILS % (MANUAL) 60 % (40-74)
[2018-10-07 06:10] LABS: ANISOCYTOSIS S; PLATELET MORPHOLOGY COMMENT NORMAL; POIKILOCYTOSIS S; POLYCHROMASIA FEW; RBC MORPHOLOGY COMMENT ABNORMAL
[2018-10-07 06:11] LABS: PLATELET ESTIMATE ADEQUATE
[2018-10-07] MEDS: IPRATROPIUM BROMIDE 0.02% 2.5 ML NEB NEB SCH (07:00)
--- NOTE | 2018-10-07 07:34 | Diagnostic Imaging Report ---
PROCEDURE:X-RAY MODIFIED BARIUM SWALLOW COMPARISON:None. INDICATIONS:Recurrent pneumonia DISCUSSION:Fluoroscopic examination was performed in conjunction with speech pathology, during swallowing of a variety of thin and thick liquid consistencies. Fluoroscopy time: 1.8 minutes Total dose: 12.8 mGy CONCLUSION:Premature spillage to the level of the perform sinus. Infrequent trace silent aspiration of thin liquids. Please see the report from speech pathology for complete details. Raymundo Aponte D.O. Dictated by: Raymundo Aponte D.O. on 10/07/2018 at 7:44 Electronically approved by: Raymundo Aponte D.O. on 10/07/2018 at 7:44
[2018-10-07 08:20] VITALS: BP 157/92
[2018-10-07] MEDS: APIXABAN 5 MG TABLET PO SCH (08:20)
[2018-10-07] MEDS: SIMVASTATIN 20 MG TAB PO SCH (08:20)
[2018-10-07] MEDS: MONTELUKAST SODIUM 10 MG TAB PO SCH (08:20)
[2018-10-07] MEDS: METOCLOPRAMIDE HCL 10 MG TAB PO SCH ×2 (08:20→12:20)
[2018-10-07] MEDS: ASPIRIN 81 MG CHEW TAB PO SCH (08:20)
[2018-10-07] MEDS: AZITHROMYCIN 500MG/NS 250 ML 250 ML IV SCH (08:20)
[2018-10-07] MEDS: INSULIN REGULAR, HUMAN 100 UNIT/1 ML 3ML VIAL SQ SCH ×2 (08:20→12:20)
[2018-10-07] MEDS: PANTOPRAZOLE SOD 40 MG TABEC PO SCH (08:20)
[2018-10-07] MEDS: SERTRALINE HCL 50 MG TAB PO SCH (08:20)
[2018-10-07] MEDS: GABAPENTIN 300 MG CAP PO SCH (08:20)
[2018-10-07] MEDS: METOPROLOL TARTRATE 25 MG TAB PO SCH (08:20)
--- NOTE | 2018-10-07 08:20 | NUR ---
pt received sitting on edge of bed, aa/o x3, no c/o at present. no apparent resp distress, reports occasional nonproductive cough. assessment complete, vss. discussed plan for the day.
[2018-10-07] MEDS ORDERED: SODIUM CHLORIDE 0.9% 250ML 250 ML ONE (08:31)
[2018-10-07] MEDS ORDERED: AMIODARONE HCL 200 MG TAB PO SCH (09:00)
[2018-10-07] MEDS ORDERED: INSULIN DETEMIR 100 UNIT/ML PEN SQ SCH (09:00)
--- NOTE | 2018-10-07 11:30 | NUR ---
seen by dr leonela rueda, pt february d/c home after education consult with [facility] lead
[2018-10-07] MEDS ORDERED: AMIODARONE HCL200 MG PO (13:23)
[2018-10-07] MEDS ORDERED: CEFDINIR300 MG PO (13:23)
[2018-10-07] MEDS ORDERED: ELIQUIS PO (13:25)
--- NOTE | 2018-10-07 13:40 | NUR ---
discharge instructions reviewed with pt, all questions answered. followup appts discussed and rx's with education provided. #20iv to lwrist removed with tip intact, pressure dressing applied. telemetry removed.
--- NOTE | 2018-10-07 14:05 | NUR ---
pt left floor via w/c, with all belongings
--- NOTE | 2018-10-07 16:36 | Discharge Summary ---
DISCHARGE DIAGNOSES 1. Haemophilus influenza pneumonia with severe sepsis present on admission. 2. New onset atrial fibrillation with rapid ventricular response. 3. Diabetes out of control requiring insulin. 4. Severe obesity. 5. Hypoalbuminemia. 6. Acute kidney injury secondary to dehydration. DISCHARGE MEDICATIONS: 1. Omnicef 300 mg p.o. b.i.d. for 10 days. 2. Amiodarone 200 mg p.o. b.i.d. 3. Eliquis 5 mg p.o. b.i.d. 4. Aspirin 81 mg p.o. q. day. 5. Gabapentin 300 mg p.o. b.i.d. 6. Levothyroxine 112 mcg p.o. q. day. 7. Metformin 1000 mg b.i.d. 8. Insulin, Lantus 30 units subcu q. evening. 9. Jaoehxijkka38 mg p.o. q. day. 10. Metoprolol 25 mg p.o. b.i.d. 11. Reglan 10 mg p.o. nightly. 12. Sertraline 25 mg p.o. q. day. 13. Simvastatin 20 mg p.o. q. day. RADIOGRAPHIC DATA: 1. Modified barium swallow showed premature spillage to the level of the pyriform sinus with possible silent aspiration. 2. Chest physiotherapy shows focal area of consolidation in the right lower lobe secondary to aspiration pneumonia. HISTORY OF PRESENT ILLNESS: The patient is a 58-year-old man. He reports dyspnea and cough for several days. He went to the emergency department and initially had a negative chest x-ray. He subsequently came back with some hemoptysis. HOSPITAL COURSE: The patient was admitted and found to have pneumonia on x-ray. He was started on IV antibiotics and improved. Subsequent cultures grew out Haemophilus. Hospital course was further complicated by high blood sugars. He required adjustment of his insulin and diabetic medications. His creatinine went up briefly and he required intravenous fluids as well. DISPOSITION: The patient should follow up with Dr. Rueda in 5 to 7 days for monitoring of his atrial fibrillation and diabetes. Patient should also follow up with Dr. Ishmael Sevilla of pulmonary in 2 to 3 weeks. He will require a repeat chest x-ray and repeat evaluation. ISHMAEL SEVILLA MD Job#: [id number] GH
== END 2018-10-07 14:26 | disposition home or self-care (01) | DRG 871 ==
LOC: FSED 09:46 → ERHOLD 11:59 → ICU 13:59 → IMCU 10-04 10:17
PROVIDERS: ADMIT Internal Medicine; ATTEND Internal Medicine
DX: A41.3 Sepsis due to Hemophilus influenzae (principal); J18.9 Pneumonia, unspecified organism; N17.9 Acute kidney failure, unspecified; Z68.41 Body mass index [BMI] 40.0-44.9, adult; I48.2 Chronic atrial fibrillation; Z79.01 Long term (current) use of anticoagulants; E11.9 Type 2 diabetes mellitus without complications; E86.0 Dehydration; E66.01 Morbid (severe) obesity due to excess calories; R65.20 Severe sepsis without septic shock
CPT/HCPCS: 36415; 36600; 71045; 71250; 74230; 80053; 82550; 82553; 82805; 82948; 83605; 84484; 85025; 85610; 87040; 87070; 87071; 87205; 87400; 87449; 93005; 93306; 94640; 94660; 96360; 96367; 96372; 99284; J0456; J0696; J1650; J1720; J7030; J7050

== ENCOUNTER 2018-11-04 04:56 | Inpatient (IN) | payer BC, OTHER ==
[~2018-11-04] VITALS: Ht 177.8 cm; Wt 121.6 kg
[~2018-11-04 04:56] MED LIST changes: +AMIODARONE HCL200 MG PO; +CEFDINIR300 MG PO; +ELIQUIS PO
[2018-11-04] MEDS ORDERED: ACETAMINOPHEN 1000 MG/100 ML IV STA (04:58)
[2018-11-04] MEDS ORDERED: SODIUM CHLORIDE 0.9% 1000ML 1,000 ML IV ONE ×2 (05:00→05:45)
[2018-11-04] MEDS ORDERED: METHYLPREDNISOLONE SOD SUCC 125 MG/2ML VIAL IV ONE (05:00)
[2018-11-04] MEDS ORDERED: METHYLPREDNISOLONE SOD SUCC 125 MG/2ML VIAL ONE (05:04)
[2018-11-04] MEDS ORDERED: TRAZODONE HCL50 MG PO (05:12)
[2018-11-04] MEDS ORDERED: METOPROLOL TART50 MG PO (05:14)
[2018-11-04] MEDS ORDERED: PRAVASTATIN SOD40 MG PO (05:17)
[2018-11-04] MEDS ORDERED: METFORMIN HCL500 MG PO (05:17)
[2018-11-04] MEDS ORDERED: GLIPIZIDE10 MG PO (05:17)
[2018-11-04] MEDS ORDERED: CYMBALTA30 MG PO (05:17)
[2018-11-04] MEDS ORDERED: HYDROCHLOROTHIA25 MG PO (05:18)
[2018-11-04] MEDS ORDERED: PRISTIQ ER50 MG PO (05:18)
[2018-11-04 05:24] LABS: BASOPHILS # (AUTO) 0.1 (0.0-0.1); BASOPHILS % 0.4 % (0.0-1.0); HEMATOCRIT 36.3 % (38.2-49.6); HEMOGLOBIN 12.8 g/dL (14.0-18.0); LYMPHOCYTES # (AUTO) 2.1 (1.0-3.2); LYMPHOCYTES % 7.2 % (18.0-39.1); MEAN CORPUSCULAR HEMOGLOBIN 32.2 pg (28-32); MEAN CORPUSCULAR HGB CONC 35.3 g/dL (31-35); MEAN CORPUSCULAR VOLUME 91.2 fL (81-99); MONOCYTES # (AUTO) 2.2 (0.2-0.8); MONOCYTES % 7.5 % (4.4-11.3); NEUTROPHILS # (AUTO) 24.6 (2.1-6.9); NEUTROPHILS % 83.4 % (38.7-80.0); PLATELET COUNT 193 x10e3/uL (140-360); RED BLOOD COUNT 3.98 x10e6/uL (4.3-5.7); RED CELL DISTRIBUTION WIDTH 13.6 % (11.7-14.4)
[2018-11-04 05:32] LABS: INR 1.19; PROTHROMBIN TIME 16.1 seconds (11.9-14.5)
[2018-11-04 05:33] LABS: PARTIAL THROMBOPLASTIN TIME 44.7 seconds (23.8-35.5); STREPTOCOCCUS GRP A ANTIGEN NEGATIVE (NEGATIVE)
[2018-11-04 05:43] LABS: INFLUENZAE A&B ANTIGEN (RAPID) NEGATIVE (NEGATIVE)
[2018-11-04 05:45] LABS: CALCIUM 9.7 mg/dL (8.4-10.2); CREATININE, SERUM 1.46 mg/dL (0.72-1.25)
[2018-11-04] MEDS: CEFTRIAXONE SOD 1 GM/NS 50 ML 50 ML IV SCH (06:00)
[2018-11-04] MEDS ORDERED: VANCOMYCIN 1GM/NS 250 ML 250 ML IV STA (06:01)
[2018-11-04] MEDS: AZITHROMYCIN 500MG/NS 250 ML 250 ML IV SCH (06:08)
[2018-11-04] MEDS ORDERED: ACETAMINOPHEN 325 MG TAB PO PRN (06:30)
[2018-11-04] MEDS: ALBUTEROL SULF 0.083% NEB SOLN 3 ML NEB NEB SCH ×5 (06:30→23:00)
[2018-11-04] MEDS ORDERED: DEXTROSE 50% SYRINGE 50 ML IV PRN ×2 (06:30→08:00)
[2018-11-04] MEDS ORDERED: ONDANSETRON HCL INJ 2MG/ML 2ML 2 MG/ML VIAL IV PRN (06:30)
--- NOTE | 2018-11-04 06:40 | Diagnostic Imaging Report ---
EXAMINATION: CHEST SINGLE (PORTABLE) INDICATION: fever, cough COMPARISON: 10/04/2018 FINDINGS: AP view TUBES and LINES: None. LUNGS: Lungs are moderately inflated. There is bibasilar atelectasis. There is no evidence of pneumonia or pulmonary edema. PLEURA: No pleural effusion or pneumothorax. HEART AND MEDIASTINUM: The cardiomediastinal silhouette is unremarkable. BONES AND SOFT TISSUES: No acute osseous lesion. Soft tissues are unremarkable. UPPER ABDOMEN: No free air under the diaphragm. IMPRESSION: No acute thoracic abnormality. Signed by: DR. Jeffrey Ayala MD on 11/04/2018 6:37 AM
[2018-11-04] MEDS ORDERED: SODIUM CHLORIDE 0.9% 1000ML 1,000 ML ONE (07:08)
--- NOTE | 2018-11-04 07:09 | NUR ---
REPORT TO LARY DUGAN
[2018-11-04] MEDS: SODIUM CHLORIDE 0.9% 1000ML 1,000 ML IV SCH ×3 (07:10→23:07)
[2018-11-04] MEDS ORDERED: INSULIN REGULAR, HUMAN 100 UNIT/1 ML 3ML VIAL SQ SCH (07:30)
[2018-11-04] MEDS ORDERED: DEXAMETHASONE SOD PHOS 10 MG/1 ML VIAL IV SCH ×2 (07:45→09:00)
[2018-11-04 07:48] LABS: ANISOCYTOSIS SLIGHT; LYMPHOCYTES % (MANUAL) 9 % (19-48); METAMYELOCYTES % (MANUAL) 1 % (0-0); MONOCYTES % (MANUAL) 10 % (3.4-9.0); MYELOCYTES % (MANUAL) 1 % (0-0); NEUTROPHILS % (MANUAL) 79 % (40-74)
[2018-11-04] MEDS ORDERED: DEXAMETHASONE SOD PHOS 10 MG/1 ML VIAL ONE (07:48)
[2018-11-04 07:49] LABS: PLATELET ESTIMATE ADEQUATE; PLATELET MORPHOLOGY COMMENT NORMAL; RBC MORPHOLOGY COMMENT NORMAL
[2018-11-04] MEDS ORDERED: TRAZODONE HCL 50 MG TAB PO PRN ×2 (08:00→08:15)
--- NOTE | 2018-11-04 08:29 | NUR ---
Patient placed on hospital bed at this time.
[2018-11-04] MEDS ORDERED: SIMVASTATIN 20 MG TAB PO SCH (09:00)
[2018-11-04] MEDS ORDERED: NON-FORMULARY MEDICATION (Glipizide 10 MG) PO SCH (09:00)
[2018-11-04] MEDS ORDERED: PANTOPRAZOLE SOD 40 MG TABEC PO SCH (09:00)
--- NOTE | 2018-11-04 09:31 | History and Physical ---
CHIEF COMPLAINT: Dyspnea, congestion and cough. HISTORY OF PRESENT ILLNESS: The patient is a 58-year-old man. He was hospitalized at [facility] in late September with a pneumonia. A CT scan at that time showed a right lower lobe mass versus infiltrate along with an abnormal barium swallow test suggesting aspiration. He received IV antibiotics and improved. His sputum subsequently grew out haemophilus. He now returns with several days of increased congestion and cough. He notes increased dyspnea. He does not complain of hemoptysis. He is not complaining of chest pain. He is unsure about fevers. PAST MEDICAL HISTORY 1. Atrial fibrillation. The patient was started on amiodarone by Dr. Walker along with [place] in September. 2. Insulin dependent diabetes mellitus. 3. Hypertension. 4. Hypothyroidism. 5. Monoclonal gammopathy is being observed as an outpatient. Patient has never received any chemotherapy. PAST SURGICAL HISTORY: Noncontributory. SOCIAL HISTORY: The patient quit smoking 3 years ago. He is not an active drinker. He has no recent travel. FAMILY HISTORY: Significant for diabetes and hypertension. REVIEW OF SYSTEMS: The patient did have some fevers here in the hospital, but he is unsure about fevers at home. He has no headache. He does note some nasal congestion as well as a sore throat. He denies any neck pain. He denies chest pain. He does note congestion and cough. He has some phlegm production. He does not have any chest pain. He does not have any abdominal pain. He has no nausea or vomiting. He has no leg swelling. PHYSICAL EXAMINATION VITALS: The T-max is 100.5, and the pulse is 90 to 100 with a normal sinus rhythm. His saturation is 96% on 2 liters. His blood pressure is 100/70. HEENT: Examination shows no facial swelling. There is some oropharyngeal erythema. LYMPHATIC: Examination shows no submandibular, cervical or supraclavicular adenopathy. CARDIOVASCULAR: Regular rate and rhythm with normal S1 and S2. There are no murmurs or rubs. RESPIRATORY: Auscultation of lungs reveals rhonchus breath sounds bilaterally. There is no wheezing. ABDOMEN: Soft and nontender. There is no rebound or guarding. EXTREMITIES: No leg edema or calf tenderness. There is no cyanosis or clubbing. SKIN: No rashes. NEUROLOGIC: Exam shows no focal abnormalities. RADIOGRAPHIC DATA: Chest x-ray shows no active disease. CT scan from the September showed a focal consolidation with air bronchograms in the right lower lobe. Modified barium swallow from the 05 of October shows spillage suggestive of silent aspiration. LABORATORY DATA: White blood cell count is 29.5, and the hemoglobin is 10.9. The platelet count is 193. The IOZ-ak-hozguznsri ratio is 20:1.46 with sodium 130. Blood sugar is 220 to 240. Lactic acid is 45.8. Rapid flu is negative. IMPRESSION 1. Aspiration pneumonia with severe sepsis. 2. Acute kidney injury. 3. Diabetes with poor blood sugar control. 4. Probable obstructive sleep apnea. 5. Paroxysmal atrial fibrillation. PLAN 1. Begin appropriate antibiotics to cover for community-acquired pathogens as well as aspiration pneumonia. 2. Repeat CT scan of the chest. 3. Sputum culture as well as blood cultures. 4. Continue Levemir at night along with insulin as needed before meals. 5. Hold metformin due to sepsis. 6. Continue amiodarone and metoprolol. 7. Hold the Eliquis until we are certain the patient will not require bronchoscopy. Job#: [id number]
[2018-11-04] MEDS: METOPROLOL TARTRATE 50 MG TAB PO SCH (09:33)
[2018-11-04] MEDS: MONTELUKAST SODIUM 10 MG TAB PO SCH (09:34)
[2018-11-04] MEDS: DULOXETINE HCL 30 MG DELAYED RELEASE PO SCH ×2 (09:34→13:56)
[2018-11-04] MEDS: AMIODARONE HCL 200 MG TAB PO SCH (09:34)
[2018-11-04] MEDS: PANTOPRAZOLE SOD 40 MG TABEC PO SCH (09:34)
[2018-11-04] MEDS: GABAPENTIN 300 MG CAP PO SCH ×2 (09:34→13:56)
[2018-11-04] MEDS: SERTRALINE HCL 50 MG TAB PO SCH (09:34)
[2018-11-04] MEDS: GLIPIZIDE 5 MG TAB PO SCH ×2 (09:34→13:56)
--- NOTE | 2018-11-04 09:41 | Diagnostic Imaging Report ---
EXAM: CT Chest WITHOUT contrast INDICATION: Follow-up right lower lobe consolidation on previous CT COMPARISON: CT Chest 10/02/2018. TECHNIQUE: The Chest was scanned utilizing a multidetector helical scanner without the use of IV contrast. Coronal and sagittal reformations were obtained. Reformatted axial MIP images were obtained and reviewed. IV CONTRAST: None COMPLICATIONS: None RADIATION DOSE: Total DLP: 863.8 mGy*cm CTDIvol has been reviewed. It is below the limits set by the Radiation Protocol Committee (RPC). Dose modulation, iterative reconstruction, and/or weight based adjustment of the mA/kV was utilized to reduce the radiation dose to as low as reasonably achievable. FINDINGS: Lines and Tubes: None. Lower Neck: Please refer to concurrently performed neck CT for further details. Lungs: The central airways are patent. Diffuse motion artifact limits evaluation for underlying lung nodule and consolidation. There has been interval decrease in focal consolidation in the medial aspect of the right lower lobe, now more patchy in appearance. Scattered subsegmental ground glass and linear opacities notably in the left lower lobe, middle lobe, and lingula likely represent atelectasis, although underlying consolidation is possible. Pleura: There is no pneumothorax or pleural effusion. Heart and Great Vessels: No evidence of mediastinal lymphadenopathy. No cardiomegaly or pericardial effusion. Scattered coronary calcifications. Upper abdomen: Hepatic steatosis. Partially visualized spleen and adrenal glands are unremarkable. Bones and Soft Tissues: Degenerative changes of the visualized spine. No suspicious lytic or blastic lesions. IMPRESSION: Interval decrease in consolidation in the medial aspect of the right lower lobe, most consistent with resolving pneumonia. Diffuse motion artifact limits evaluation. Additional scattered opacities likely reflect atelectasis, although underlying consolidation is possible. Follow-up chest CT to resolution is suggested in 3 months. Signed by: Dr. Myrna Spaulding MD on 11/04/2018 9:37 AM
--- NOTE | 2018-11-04 10:14 | NUR ---
pt resting comfortably in bed at this time denies any complaints
[2018-11-04] MEDS: INSULIN REGULAR, HUMAN 100 UNIT/1 ML 3ML VIAL SQ SCH ×3 (11:29→22:29)
[2018-11-04] MEDS: METOCLOPRAMIDE HCL 10 MG TAB PO SCH ×3 (11:29→21:47)
[2018-11-04] MEDS ORDERED: SODIUM CHLORIDE 0.9% 50ML 50 ML ONE (11:58)
[2018-11-04] MEDS ORDERED: IOPAMIDOL 370 MG/ML 200 ML INFUS..BTL INJ ONE (11:58)
[2018-11-04] MEDS ORDERED: IPRATROPIUM BROMIDE 0.02% 2.5 ML NEB NEB SCH (12:00)
[2018-11-04] MEDS ORDERED: IPRATROPIUM BROMIDE 0.02% 2.5 ML NEB NEB PRN (12:00)
--- NOTE | 2018-11-04 12:44 | Diagnostic Imaging Report ---
History: Sore throat Comparison studies: None Technique: Axial, coronal and sagittal images from the skull base to the thoracic inlet. Coronal and sagittal images reconstructed from the axial data. Intravenous contrast: 100 cc of Omnipaque 300. Dose modulation, iterative reconstruction, and/or weight based adjustment of the mA/kV was utilized to reduce the radiation dose to as low as reasonably achievable. Findings: Soft tissues: Retropharyngeal space thickening, prominent bilateral palatine tonsils, thickened epiglottis and aryepiglottic folds results in moderate narrowing of the aerodigestive tract. No drainable fluid collection Masses: No sizable neck mass Lymph nodes: No radiographically significant adenopathy. Vessels: Arteries and veins are patent atherosclerotic calcifications of the carotid siphons. Glands (thyroid, parotid and submandibular): Normal in size and symmetric. No masses. Orbits: No abnormalities. Paranasal sinuses: Clear. Temporal bones: No abnormalities. Skull base and facial bones: Intact. Cervical spine: Straightening of the cervical spine lordosis. Posterior disc osteophyte complexes from C2 through C7 results in mild to moderate stenosis. Bilateral uncinate process hypertrophy and facet hypertrophy results in moderate foraminal narrowing at C3-4 on the right and at C5-6 on the left. IMPRESSION: 1. Thickened epiglottis, aryepiglottic folds retropharyngeal space without drainable fluid collection, results in moderate narrowing of the aerodigestive tract, this could be seen in epiglottitis/pharyngitis. Recommend follow-up after treatment. Signed by: DR Walker Batres M.D. on 11/04/2018 12:41 PM
[2018-11-04 14:15] LABS: CREATINE KINASE MB 1.7 ng/mL (0-5.0)
--- NOTE | 2018-11-04 14:18 | NUR ---
Dr. Sevilla notified or reccomendation for Neuromuscular electrical stimulation by speech therapy. Dr. Sevilla states he will let Dr. Gann assess patient before that is ordered.
[2018-11-04] MEDS ORDERED: INSULIN DETEMIR 100 UNIT/ML PEN SQ SCH (17:00)
--- NOTE | 2018-11-04 19:10 | NUR ---
WALKING ROUNDS WITH LARY WASHINGTON DAY SHIFT NURSE.
--- NOTE | 2018-11-04 19:45 | NUR ---
LAB CALLED, GRAM POSITIVE COCCI IN PAIRS IN BOTH AEORBIC AND ANAEROBIC BLOOD CULTURES.
--- NOTE | 2018-11-04 20:33 | Diagnostic Imaging Report ---
PROCEDURE: X-RAY MODIFIED BARIUM SWALLOW COMPARISON: None. INDICATION: Recurrent pneumonia Radiation Details: Fluoroscopy time: 1.8 minutes Cumulative dose: 16.3 mGy DISCUSSION: Fluoroscopic examination was performed in conjunction with speech pathology during swallowing a variety of thin and thick liquid consistencies. Provided images demonstrate laryngeal penetration and aspiration. There is pharyngeal residue between swallows. CONCLUSION: Modified barium swallow demonstrating laryngeal penetration and aspiration. Please refer to the speech pathology report for further details. Signed by: Dr. Myrna Spaulding MD on 11/04/2018 8:29 PM
--- NOTE | 2018-11-04 20:57 | Consultation ---
DATE OF CONSULTATION: November 04, 2018 CHIEF COMPLAINT: Throat problems. HISTORY OF PRESENT ILLNESS: Patient is a 58-year-old white male with multiple underlying medical problems, who presents with 1-day history of throat pain, odynophagia, dysphagia, and mild dyspnea. He denies any neck masses. He has had no previous throat or neck surgery. He denies any recent throat or neck trauma. He quit smoking 20 years ago. Patient presented to the [facility] Emergency Room with these symptoms. I have been asked to evaluate his upper airway. 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 ALLERGIES: HE HAS NO KNOWN DRUG ALLERGIES. PAST SURGICAL HISTORY: Appendectomy, ankle fracture repair. MEDICATIONS: Amiodarone, Omnicef, Pristiq, Cymbalta, gabapentin, glipizide, hydrochlorothiazide, metformin, Reglan, insulin, metoprolol, Singulair, omeprazole, pravastatin, Zoloft, levothyroxine, trazodone, Eliquis. SOCIAL HISTORY: Tobacco, he quit smoking 20 years ago. PHYSICAL EXAMINATION: GENERAL: Patient is a middle-aged overweight white male, appearing of stated age with no overt stridor though he appears to have secretions in his throat during breathing. HEENT: Ears appear normal bilaterally on otoscopy. Face is symmetric. Nasal exam is clear. Oral cavity, oropharynx reveals enlarged tongue and crowded pharynx consistent with the long-standing obstructive sleep apnea. Tonsils are 2+ to 3+ over 2+ to 3+ bilaterally, not obstructing the airway, but erythematous (without exudates) bilaterally. There is no evidence of deviated uvula or evidence of peritonsillar abscess. NECK: There is no overt palpable significant lymphadenopathy. FLEXIBLE FIBEROPTIC NASOLARYNGOSCOPY: reveals mild to moderately erythematous and edematous epiglottis though the airway appears to be patent. ASSESSMENT: Acute tonsillitis and epiglottitis. RECOMMENDATIONS: IV steroids to decrease the swelling of the epiglottis (with concomitant treatment of elevated blood sugars due to the steroids). Antibiotics to cover bacterial sam of the upper airway. Job#: [id number] DR CARVER
[2018-11-04] MEDS: DEXAMETHASONE SOD PHOS 10 MG/1 ML VIAL IV SCH (21:47)
[2018-11-04] MEDS: SIMVASTATIN 20 MG TAB PO SCH (21:47)
[2018-11-04 22:12] LABS: CREATINE KINASE 320 IU/L (30-200)
[2018-11-05] MEDS: ALBUTEROL SULF 0.083% NEB SOLN 3 ML NEB NEB SCH ×6 (03:00→22:10)
[2018-11-05 05:28] LABS: BASOPHILS % 0.1 % (0.0-1.0); HEMOGLOBIN 10.3 g/dL (14.0-18.0); LYMPHOCYTES # (AUTO) 1.3 (1.0-3.2); LYMPHOCYTES % 7.9 % (18.0-39.1); MEAN CORPUSCULAR HEMOGLOBIN 31.7 pg (28-32); MEAN CORPUSCULAR HGB CONC 35.5 g/dL (31-35); MEAN CORPUSCULAR VOLUME 89.2 fL (81-99); MONOCYTES % 6.2 % (4.4-11.3); NEUTROPHILS # (AUTO) 14.2 (2.1-6.9); NEUTROPHILS % 83.8 % (38.7-80.0); PLATELET COUNT 134 x10e3/uL (140-360); RED BLOOD COUNT 3.25 x10e6/uL (4.3-5.7); RED CELL DISTRIBUTION WIDTH 13.6 % (11.7-14.4)
[2018-11-05 05:57] LABS: ALANINE AMINOTRANSFERASE 27 IU/L (0-55); ALBUMIN 3.1 g/dL (3.5-5.0); ALBUMIN/GLOBULIN RATIO 0.9 (0.8-2.0); ALKALINE PHOSPHATASE 36 IU/L (40-150); ANION GAP 12.6 mmol/L (8-16); BLOOD UREA NITROGEN 17 mg/dL (7-26); BUN/CREATININE RATIO 15 (6-25); CALCIUM 8.6 mg/dL (8.4-10.2); CARBON DIOXIDE 23 mmol/L (22-29); CHLORIDE 106 mmol/L (98-107); CREATININE, SERUM 1.13 mg/dL (0.72-1.25); EST GLOMERULAR FILTRATION RATE > 60 ML/MIN (60-); GLUCOSE 209 mg/dL (74-118); POTASSIUM 3.6 mmol/L (3.5-5.1); SODIUM 138 mmol/L (136-145)
[2018-11-05] MEDS ORDERED: LEVOTHYROXINE SODIUM 150 MCG PO SCH (06:00)
[2018-11-05] MEDS ORDERED: LEVOTHYROXINE SODIUM 75 MCG TAB PO SCH (06:00)
[2018-11-05] MEDS: CEFTRIAXONE SOD 1 GM/NS 50 ML 50 ML IV SCH (06:21)
[2018-11-05] MEDS: METOCLOPRAMIDE HCL 10 MG TAB PO SCH ×2 (07:04→11:08)
--- NOTE | 2018-11-05 07:06 | NUR ---
REPORT GIVEN TO LARY WASHINGTON DAY SHIFT NURSE.
[2018-11-05] MEDS: SODIUM CHLORIDE 0.9% 1000ML 1,000 ML IV SCH (07:33)
[2018-11-05] MEDS: AZITHROMYCIN 500MG/NS 250 ML 250 ML IV SCH (07:33)
[2018-11-05] MEDS: INSULIN REGULAR, HUMAN 100 UNIT/1 ML 3ML VIAL SQ SCH ×4 (08:46→21:00)
[2018-11-05] MEDS: VANCOMYCIN 1GM/NS 250 ML 250 ML IV SCH ×2 (08:56→22:10)
[2018-11-05] MEDS: SOD CHL 0.45%/POT CHL 20MEQ 1,000 ML IV SCH ×2 (08:56→12:50)
[2018-11-05] MEDS: METOPROLOL TARTRATE 50 MG TAB PO SCH (09:03)
[2018-11-05] MEDS: DULOXETINE HCL 30 MG DELAYED RELEASE PO SCH ×2 (09:03→17:00)
[2018-11-05] MEDS: GABAPENTIN 300 MG CAP PO SCH ×2 (09:03→16:01)
[2018-11-05] MEDS: AMIODARONE HCL 200 MG TAB PO SCH (09:03)
[2018-11-05] MEDS: LEVOTHYROXINE SODIUM 100 MCG/VIAL IV SCH (09:04)
[2018-11-05] MEDS: SERTRALINE HCL 50 MG TAB PO SCH (09:04)
[2018-11-05] MEDS: PANTOPRAZOLE SOD 40 MG TABEC PO SCH (09:04)
[2018-11-05] MEDS: GLIPIZIDE 5 MG TAB PO SCH ×2 (09:04→16:01)
[2018-11-05] MEDS: MONTELUKAST SODIUM 10 MG TAB PO SCH (09:04)
--- NOTE | 2018-11-05 09:04 | Progress Note ---
DATE: PULMONARY CRITICAL CARE PROGRESS NOTE The patient had a modified barium swallow yesterday that showed aspiration. A CT scan of the neck and ENT consultation showed pharyngitis and epiglottitis. CT scan of the chest showed resolving right lower lobe infiltrate. PHYSICAL EXAMINATION VITALS: The patient is afebrile. The blood pressure is 110/60 and pulse ox is 99% on 3 L. The respiratory rate is 16 and the heart rate is 90-100. HEENT: Shows no facial swelling or erythema. The oropharynx is red, but there is no peritonsillar swelling or narrowing of the oropharynx. LYMPHATIC: Shows no submandibular, cervical or supraclavicular adenopathy. There is no crepitus or soft tissue swelling in the submandibular space or in the cervical areas. CARDIAC: Reveals a regular rate and rhythm with a normal S1 and S2. LUNGS: Auscultation of the lungs reveals rhonchi at the right base. ABDOMEN: Soft and nontender. There is no rebound or guarding. EXTREMITIES: Shows no leg edema or calf tenderness. There is no cyanosis or clubbing. SKIN: Shows no rashes. NEUROLOGICAL: Shows no focal abnormalities. LABORATORY DATA: White blood cell count is improved to 17 and the hemoglobin is 10.3. The platelet count is 134,000. The BUN to creatinine ratio is improved to 17/1.13. The lactic acid has decreased to 20.7. The blood sugar is 216. IMPRESSION 1. Acute epiglottitis and pharyngitis with severe sepsis present on admission. 2. Aspiration pneumonia. 3. Acute kidney injury. 4. Diabetes with poor blood sugar control. 5. Severe obesity. 6. Probable obstructive sleep apnea. 7. Paroxysmal atrial fibrillation. PLAN 1. Patient will continue to be n.p.o. for now. We will re-evaluate this after the acute pharyngitis and epiglottitis have been treated. 2. Continue IV antibiotics and intravenous fluids. 3. Monitor and control blood sugar. 4. Continue current antibiotics and adjust antibiotics depending on culture results. Job#: [id number] [facility]
--- NOTE | 2018-11-05 09:18 | NUR ---
PER DR Ras NO LEAVE PT PO MEDS IS UNTIL HE IS ABLE TO REASSESS PT ABILITY TO SWALLOW
[2018-11-05] MEDS: DEXAMETHASONE SOD PHOS 10 MG/1 ML VIAL IV SCH ×2 (09:36→22:27)
[2018-11-05] MEDS ORDERED: METOCLOPRAMIDE HCL 10 MG/2ML VIAL IV PRN (11:45)
--- NOTE | 2018-11-05 13:37 | NUR ---
pt resting comfortably in bed visiting with family denies any complaints at this time
--- NOTE | 2018-11-05 16:20 | NUR ---
pt arrived to unit resp even and unlabored , pt has 2lnc in place. pt has no s/s of distress. no c/o pain when asked, pt able to make needs known, pt oriented to room and call light, pt has call light in reach, bed in lowest position, bed rails up x2, will cont to monitor.
[2018-11-05] MEDS ORDERED: ENOXAPARIN SOD INJ 40 MG/0.4 ML SYR SC SCH (17:00)
[2018-11-05] MEDS: INSULIN DETEMIR 100 UNIT/ML PEN SQ SCH (17:00)
[2018-11-05 17:30] VITALS: BP 142/67
--- NOTE | 2018-11-05 19:40 | NUR ---
report given to oncoming nurse for continued care.
[2018-11-05 20:05] VITALS: BP 150/69
--- NOTE | 2018-11-05 20:36 | NUR ---
RECEIVED PT IN BED AOX3 .NOTED SWELLING BOTH SIDE OF THE THROAT .DENIES PAIN .RESPIRATIONS ARE EVEN AND UNLABORED .CALL LIGHT WITH IN REACH.CONTINUE TO MONITOR
[2018-11-05] MEDS: SIMVASTATIN 20 MG TAB PO SCH (21:00)
[2018-11-06] VITALS (8 sets, daily range): BP systolic 120–156; BP diastolic 70–87
[2018-11-06] MEDS: ALBUTEROL SULF 0.083% NEB SOLN 3 ML NEB NEB SCH ×6 (03:20→22:25)
[2018-11-06] MEDS: SOD CHL 0.45%/POT CHL 20MEQ 1,000 ML IV SCH ×4 (03:39→23:48)
[2018-11-06 04:55] LABS: BASOPHILS % 0.2 % (0.0-1.0); HEMATOCRIT 29.8 % (38.2-49.6); HEMOGLOBIN 10.2 g/dL (14.0-18.0); LYMPHOCYTES % 8.1 % (18.0-39.1); MEAN CORPUSCULAR HEMOGLOBIN 31.5 pg (28-32); MEAN CORPUSCULAR HGB CONC 34.2 g/dL (31-35); MONOCYTES # (AUTO) 0.4 (0.2-0.8); MONOCYTES % 3.7 % (4.4-11.3); NEUTROPHILS # (AUTO) 10.1 (2.1-6.9); NEUTROPHILS % 86.7 % (38.7-80.0); PLATELET COUNT 139 x10e3/uL (140-360); RED BLOOD COUNT 3.24 x10e6/uL (4.3-5.7); RED CELL DISTRIBUTION WIDTH 13.7 % (11.7-14.4)
[2018-11-06] MEDS: AZITHROMYCIN 500MG/NS 250 ML 250 ML IV SCH (05:05)
[2018-11-06] MEDS: CEFTRIAXONE SOD 1 GM/NS 50 ML 50 ML IV SCH ×3 (05:05→20:33)
[2018-11-06 05:14] LABS: ALANINE AMINOTRANSFERASE 24 IU/L (0-55); ALBUMIN/GLOBULIN RATIO 0.8 (0.8-2.0); ALKALINE PHOSPHATASE 37 IU/L (40-150); ANION GAP 13.3 mmol/L (8-16); BLOOD UREA NITROGEN 18 mg/dL (7-26); BUN/CREATININE RATIO 18 (6-25); CALCIUM 8.5 mg/dL (8.4-10.2); CARBON DIOXIDE 22 mmol/L (22-29); CHLORIDE 108 mmol/L (98-107); CREATININE, SERUM 1.01 mg/dL (0.72-1.25); EST GLOMERULAR FILTRATION RATE > 60 ML/MIN (60-); GLUCOSE 249 mg/dL (74-118); POTASSIUM 4.3 mmol/L (3.5-5.1); SODIUM 139 mmol/L (136-145)
[2018-11-06 05:50] LABS: FREE T4 (FREE THYROXINE) 0.95 ng/dL (0.9-1.8); THYROID STIMULATING HORMONE 2.236 uIU/mL (0.350-4.940)
--- NOTE | 2018-11-06 07:24 | NUR ---
PT RESTING AND DENIES PAIN .CALL HAWK WITH IN REACH .CONTINUE TO MONITOR
[2018-11-06] MEDS: GLIPIZIDE 5 MG TAB PO SCH ×2 (07:30→16:30)
[2018-11-06] MEDS: INSULIN REGULAR, HUMAN 100 UNIT/1 ML 3ML VIAL SQ SCH ×4 (07:30→20:33)
--- NOTE | 2018-11-06 07:30 | NUR ---
RCD PT AT BED PT IS ALERT AND ORIENTED PT RESTING ON BED NO SIGNS OF ANY DISTRESS NOTED IV PATENT BED LOW AND LOCKED CALL LIGHT IN REACH
--- NOTE | 2018-11-06 08:56 | Progress Note ---
DATE: The patient feels much better. His sore throat has improved. He is not having fevers. PHYSICAL EXAMINATION VITALS: The patient is afebrile. The blood pressure is 156/78 and the oxygen saturation is 95% on 3 L. The patient is afebrile. HEENT: Shows no facial swelling or erythema. The oropharynx is normal. LYMPHATIC: Shows no submandibular, cervical or supraclavicular adenopathy. CARDIAC: Reveals a regular rate and rhythm with a normal S1 and S2. There are no murmurs or rubs. LUNGS: Auscultation of lungs reveals clear breath sounds bilaterally. There is no wheezing. ABDOMEN: Soft and nontender. There is no rebound or guarding. EXTREMITIES: Shows no leg edema or calf tenderness. IMPRESSION 1. Acute epiglottitis with Streptococcus bacteremia and sepsis present on admission. 2. Aspiration pneumonia. 3. Acute kidney injury. 4. Diabetes with poor blood sugar control. 5. Paroxysmal atrial fibrillation. 6. Severe obesity. 7. Probable obstructive sleep apnea. PLAN 1. Taper antibiotics according to cultures. 2. Stop steroids. 3. Discussed advancing diet with ENT and speech pathology. 4. Monitor blood sugars and give insulin as needed. 5. Continue IV fluids. Job#: [id number] [facility]
[2018-11-06] MEDS: DULOXETINE HCL 30 MG DELAYED RELEASE PO SCH ×2 (09:00→16:42)
[2018-11-06] MEDS: MONTELUKAST SODIUM 10 MG TAB PO SCH (09:00)
[2018-11-06] MEDS: PANTOPRAZOLE 40 MG 10ML VIAL IV SCH (09:00)
[2018-11-06] MEDS: SERTRALINE HCL 50 MG TAB PO SCH (09:00)
[2018-11-06] MEDS: GABAPENTIN 300 MG CAP PO SCH ×2 (09:00→16:42)
[2018-11-06] MEDS: AMIODARONE HCL 200 MG TAB PO SCH (09:00)
[2018-11-06] MEDS: LEVOTHYROXINE SODIUM 100 MCG/VIAL IV SCH (09:00)
[2018-11-06] MEDS: METOPROLOL TARTRATE 50 MG TAB PO SCH (09:00)
[2018-11-06] MEDS: INSULIN DETEMIR 100 UNIT/ML PEN SQ SCH (16:42)
--- NOTE | 2018-11-06 18:41 | NUR ---
PT RESTING ON BED BED SIDE REPORT GIVEN TO ONCOMING NURSE
[2018-11-06] MEDS: IPRATROPIUM BROMIDE 0.02% 2.5 ML NEB NEB PRN (19:05)
--- NOTE | 2018-11-06 19:07 | NUR ---
Received patient sitting on the bed. No complaints.
[2018-11-06] MEDS: SIMVASTATIN 20 MG TAB PO SCH (20:33)
[2018-11-07] VITALS (7 sets, daily range): BP systolic 120–152; BP diastolic 69–89
[2018-11-07] MEDS: IPRATROPIUM BROMIDE 0.02% 2.5 ML NEB NEB PRN ×4 (02:40→19:10)
[2018-11-07] MEDS: ALBUTEROL SULF 0.083% NEB SOLN 3 ML NEB NEB SCH ×6 (02:40→23:05)
[2018-11-07 04:43] LABS: BASOPHILS % 0.1 % (0.0-1.0); HEMOGLOBIN 10.8 g/dL (14.0-18.0); LYMPHOCYTES % 22.3 % (18.0-39.1); MEAN CORPUSCULAR HGB CONC 33.8 g/dL (31-35); MONOCYTES # (AUTO) 0.4 (0.2-0.8); MONOCYTES % 3.9 % (4.4-11.3); NEUTROPHILS # (AUTO) 6.7 (2.1-6.9); NEUTROPHILS % 73.3 % (38.7-80.0); PLATELET COUNT 166 x10e3/uL (140-360); RED BLOOD COUNT 3.48 x10e6/uL (4.3-5.7); RED CELL DISTRIBUTION WIDTH 13.8 % (11.7-14.4)
[2018-11-07 05:05] LABS: ALANINE AMINOTRANSFERASE 31 IU/L (0-55); ALBUMIN 3.3 g/dL (3.5-5.0); ALKALINE PHOSPHATASE 36 IU/L (40-150); ANION GAP 12.8 mmol/L (8-16); BLOOD UREA NITROGEN 19 mg/dL (7-26); BUN/CREATININE RATIO 20 (6-25); CARBON DIOXIDE 20 mmol/L (22-29); CHLORIDE 111 mmol/L (98-107); CREATININE, SERUM 0.97 mg/dL (0.72-1.25); EST GLOMERULAR FILTRATION RATE > 60 ML/MIN (60-); GLUCOSE 87 mg/dL (74-118); POTASSIUM 3.8 mmol/L (3.5-5.1); SODIUM 140 mmol/L (136-145)
[2018-11-07] MEDS: SOD CHL 0.45%/POT CHL 20MEQ 1,000 ML IV SCH ×2 (06:43→15:45)
--- NOTE | 2018-11-07 07:05 | NUR ---
REPORT GIVEN TO ONCOMING NURSE.
[2018-11-07] MEDS: INSULIN REGULAR, HUMAN 100 UNIT/1 ML 3ML VIAL SQ SCH ×4 (07:30→20:20)
[2018-11-07] MEDS: DULOXETINE HCL 30 MG DELAYED RELEASE PO SCH ×2 (08:47→17:00)
[2018-11-07] MEDS: METOPROLOL TARTRATE 50 MG TAB PO SCH (08:47)
[2018-11-07] MEDS: MONTELUKAST SODIUM 10 MG TAB PO SCH (08:47)
[2018-11-07] MEDS: GABAPENTIN 300 MG CAP PO SCH ×2 (08:47→17:00)
[2018-11-07] MEDS: LEVOTHYROXINE SODIUM 100 MCG/VIAL IV SCH (08:47)
[2018-11-07] MEDS: GLIPIZIDE 5 MG TAB PO SCH ×2 (08:47→17:00)
[2018-11-07] MEDS: CEFTRIAXONE SOD 1 GM/NS 50 ML 50 ML IV SCH ×2 (08:47→20:20)
[2018-11-07] MEDS: PANTOPRAZOLE 40 MG 10ML VIAL IV SCH (08:47)
[2018-11-07] MEDS: AMIODARONE HCL 200 MG TAB PO SCH (08:47)
[2018-11-07] MEDS: SERTRALINE HCL 50 MG TAB PO SCH (08:47)
--- NOTE | 2018-11-07 14:40 | NUR ---
ST Note: Order for modified barium swallow study noted. Discussed case extensively with LARY Pinzon. Reviewed results of MBS completed 10/05/18 and 11/04/18 as well as recommendations. Also discussed financial concerns pt shared yesterday, including no source of income, suspension of food stamps due to government shut down, and other financial challenges that will prohibit pt from outpatient treatment as indicated. Pt continues on clear liquid diet despite documented SILENT aspiration of thin liquids. Confirmed with Adali, program/music director, and discussed with LARY Pinzon, that MBS cannot be completed without Radiologist on site. costume technicianJoanna, attempted to contact gas pumping station supervisor radiologist with no success for over 3 hours. MBS will be deferred until Friday11/09/18.
--- NOTE | 2018-11-07 16:30 | NUR ---
PT VERY LETHARGIC AND SLOW TO RESPOND. CALL OUT TO DR. ARTHUR. CT ORDERED. Addendum: 11/08/18 at 0801 by Thompson Fernandez RN WRONG PT
[2018-11-07] MEDS: INSULIN DETEMIR 100 UNIT/ML PEN SQ SCH (17:00)
--- NOTE | 2018-11-07 17:30 | NUR ---
PT BACK FROM CT MUCH MORE ALERT AND EATING WELL WITH FAMILY MEMBERS HELP. Addendum: 11/08/18 at 0801 by Thompson Fernandez RN WRONG PT
[2018-11-07] MEDS: SIMVASTATIN 20 MG TAB PO SCH (20:20)
[2018-11-08] VITALS (8 sets, daily range): BP systolic 118–147; BP diastolic 59–75
[2018-11-08] MEDS: SOD CHL 0.45%/POT CHL 20MEQ 1,000 ML IV SCH ×3 (00:07→15:53)
[2018-11-08] MEDS: IPRATROPIUM BROMIDE 0.02% 2.5 ML NEB NEB PRN ×3 (02:45→14:10)
[2018-11-08] MEDS: ALBUTEROL SULF 0.083% NEB SOLN 3 ML NEB NEB SCH ×6 (02:45→23:50)
[2018-11-08 04:53] LABS: EOSINOPHILS # (AUTO) 0.2 (0.0-0.4); EOSINOPHILS % 2.9 % (0.0-6.0); HEMATOCRIT 30.1 % (38.2-49.6); HEMOGLOBIN 11.3 g/dL (14.0-18.0); LYMPHOCYTES # (AUTO) 2.8 (1.0-3.2); LYMPHOCYTES % 38.1 % (18.0-39.1); MEAN CORPUSCULAR HGB CONC 37.5 g/dL (31-35); MONOCYTES # (AUTO) 0.4 (0.2-0.8); MONOCYTES % 5.5 % (4.4-11.3); NEUTROPHILS # (AUTO) 3.9 (2.1-6.9); NEUTROPHILS % 52.8 % (38.7-80.0); PLATELET COUNT 147 x10e3/uL (140-360); RED BLOOD COUNT 3.42 x10e6/uL (4.3-5.7); RED CELL DISTRIBUTION WIDTH 13.5 % (11.7-14.4)
[2018-11-08 05:18] LABS: ALANINE AMINOTRANSFERASE 47 IU/L (0-55); ALBUMIN 3.2 g/dL (3.5-5.0); ALKALINE PHOSPHATASE 37 IU/L (40-150); ANION GAP 13.5 mmol/L (8-16); BLOOD UREA NITROGEN 16 mg/dL (7-26); BUN/CREATININE RATIO 16 (6-25); CARBON DIOXIDE 21 mmol/L (22-29); CHLORIDE 110 mmol/L (98-107); CREATININE, SERUM 1.03 mg/dL (0.72-1.25); EST GLOMERULAR FILTRATION RATE > 60 ML/MIN (60-); GLUCOSE 99 mg/dL (74-118); POTASSIUM 3.5 mmol/L (3.5-5.1); SODIUM 141 mmol/L (136-145)
--- NOTE | 2018-11-08 07:00 | NUR ---
SHIFT CHANGE REPORT RECEIVED FROM NIGHT RN WHILE ROUNDING. PT DENIES NEEDS AT THIS TIME.
[2018-11-08] MEDS: INSULIN REGULAR, HUMAN 100 UNIT/1 ML 3ML VIAL SQ SCH ×4 (07:30→20:38)
[2018-11-08] MEDS: CEFTRIAXONE SOD 1 GM/NS 50 ML 50 ML IV SCH ×2 (08:31→20:48)
[2018-11-08] MEDS: AMIODARONE HCL 200 MG TAB PO SCH (08:31)
[2018-11-08] MEDS: DULOXETINE HCL 30 MG DELAYED RELEASE PO SCH ×2 (08:31→17:04)
[2018-11-08] MEDS: GLIPIZIDE 5 MG TAB PO SCH ×2 (08:31→17:02)
[2018-11-08] MEDS: PANTOPRAZOLE 40 MG 10ML VIAL IV SCH (08:31)
[2018-11-08] MEDS: LEVOTHYROXINE SODIUM 100 MCG/VIAL IV SCH (08:31)
[2018-11-08] MEDS: SERTRALINE HCL 50 MG TAB PO SCH (08:32)
[2018-11-08] MEDS: METOPROLOL TARTRATE 50 MG TAB PO SCH (08:32)
[2018-11-08] MEDS: MONTELUKAST SODIUM 10 MG TAB PO SCH (08:32)
[2018-11-08] MEDS: GABAPENTIN 300 MG CAP PO SCH ×2 (08:32→17:04)
[2018-11-08] MEDS: INSULIN DETEMIR 100 UNIT/ML PEN SQ SCH (17:00)
[2018-11-08] MEDS: SIMVASTATIN 20 MG TAB PO SCH (20:48)
[2018-11-09] VITALS (7 sets, daily range): BP systolic 115–146; BP diastolic 61–92
[2018-11-09] MEDS: ALBUTEROL SULF 0.083% NEB SOLN 3 ML NEB NEB SCH ×6 (03:40→23:00)
[2018-11-09] MEDS: SOD CHL 0.45%/POT CHL 20MEQ 1,000 ML IV SCH ×3 (04:22→23:45)
[2018-11-09] MEDS: INSULIN REGULAR, HUMAN 100 UNIT/1 ML 3ML VIAL SQ SCH ×4 (07:30→20:24)
[2018-11-09] MEDS: GABAPENTIN 300 MG CAP PO SCH ×2 (09:53→16:35)
[2018-11-09] MEDS: AMIODARONE HCL 200 MG TAB PO SCH (09:53)
[2018-11-09] MEDS: DULOXETINE HCL 30 MG DELAYED RELEASE PO SCH ×2 (09:53→16:35)
[2018-11-09] MEDS: METOPROLOL TARTRATE 50 MG TAB PO SCH (09:53)
[2018-11-09] MEDS: GLIPIZIDE 5 MG TAB PO SCH ×2 (09:53→16:35)
[2018-11-09] MEDS: LEVOTHYROXINE SODIUM 100 MCG/VIAL IV SCH (09:53)
[2018-11-09] MEDS: CEFTRIAXONE SOD 1 GM/NS 50 ML 50 ML IV SCH ×2 (09:53→20:23)
[2018-11-09] MEDS: MONTELUKAST SODIUM 10 MG TAB PO SCH (09:53)
[2018-11-09] MEDS: SERTRALINE HCL 50 MG TAB PO SCH (09:53)
[2018-11-09] MEDS: PANTOPRAZOLE 40 MG 10ML VIAL IV SCH (09:53)
--- NOTE | 2018-11-09 14:32 | NUR ---
Nutrition Intervention Note RD Recommendation(s) for Physician: -If PO is not feasible, consider EN for retirement nutrition -Rec continuous TF with Glucerna 1.5 @50mL/hr, providing 1800kcal, 99g protein, and 911mL water. -Rec free water flushes of 100mL q 4hr; additional water per MD discretion -Monitor for daily labs, weights, and gastric tolerance -If PO is safe, consider adding Glucerna BID and Ensure Pudding BID to increase protein-calorie intake; diet texture per WHALE FISHERMAN recommendation Plan of Care: RD following, monitoring for tolerance and adequacy Nutrition reason for involvement: LOS RD Assessment 11/09- Chart reviewed. 58yo M, who is admitted for congestion and cough. CT in September 2018 showed right lower lobe mass versus infiltrate along with an abnormal barium swallow test suggesting aspiration. Modified barium swallow on 11/04/2018 demonstrated laryngeal penetration and aspiration. Repeat MBS is scheduled for today. Visited pt in the room. Pt reports tolerating nectar thickened/ full liquid diet well during lunch. Pt denies any nausea or vomiting. LBM 11/08. Pt has no teeth and cant chew well. Pt has had swallowing issue since discharged from [facility] last month. Pt reports eating less than usual for over a month as his sx has gotten worse that he cant breathe and his throat would close up. Pt unable to recall his UBW. Unknown weight loss hx. Awaiting for WHALE FISHERMAN and ENT to determine appropriate truck terminal manager nutrition for pt. Will continue to monitor and follow. Principal Problems/Diagnoses: 1. Acute epiglottitis with Streptococcus bacteremia and sepsis present on admission. 2. Aspiration pneumonia. 3. Acute kidney injury. PMH: Grand mal seizures., insulin-dependent diabetes mellitus, hypertension, multiple myeloma, hypothyroidism, hypercholesterolemia, renal failure, and gastroesophageal reflux disease. GI: abdomen soft, non-tender, round, LBM 11/08 Skin: intact Labs: (11/08) reviewed Meds: glucotrol, potronix, KCl, steroid Ht: 70in Wt: 268.12lb BMI: 38.5kg/m2 IBW: 166lb Malnutrition Evaluation (11/09/2018) The patient does not meet criteria for a specified degree of malnutrition at this time. Will re-evaluate at follow-up as appropriate. Energy intake: <50% of estimated energy requirements for >1 month Weight loss: Unknown. Fat loss: None Muscle loss: None Supporting Evidence: Fluid accumulation: unable to evaluate Functional Status: no changes Nutrition Prescription (Diet Order): Full liquid w/ nectar thickened liquid Estimated Nutritional Needs: Calories: 1672 1900kcal(22-25kcal/kg/d) Weight used: IBW Protein: 114 152g (1.5-2g/kg/d) Weight used: IBW Diet Adequacy: Not meeting calorie needs, Not meeting protein needs Diet Education Needs Assessment: Diet education not indicated. Nutrition Care Level: mod Nutrition Diagnosis: Inadequate oral intake related to dysphagia as evidenced by NPO/ full liquid x 5 days and MBS showed risk of aspiration. Goal: Patient will meet 75-100% of estimated needs by follow up Progress: N/A Interventions: Texture- modified diet, Commercial beverage, Recommended Modifications, Skill Development, Collaboration with other providers OR Rate, Route Monitoring/Evaluation: Total energy intake, Total protein intake, Formula/Solution, OR Modified diet, Liquid supplement, Weight change Signed: Sarika Allison MS, RD, LD
--- NOTE | 2018-11-09 15:35 | NUR ---
PT PASSED THE MBS. SPEECH RECOMMENDATIONS FOR DIET PUT IN.
[2018-11-09] MEDS: INSULIN DETEMIR 100 UNIT/ML PEN SQ SCH (17:29)
--- NOTE | 2018-11-09 17:46 | NUR ---
PT IN BED WATCHING TV, DENIES PAIN AND NO DISTRESS NOTED.
[2018-11-09] MEDS: IPRATROPIUM BROMIDE 0.02% 2.5 ML NEB NEB PRN (19:00)
[2018-11-09] MEDS: SIMVASTATIN 20 MG TAB PO SCH (20:23)
[2018-11-10] VITALS: BP 121/56
[2018-11-10 00:12] VITALS: BP 121/56
[2018-11-10 04:00] VITALS: BP 152/86
[2018-11-10] MEDS: ALBUTEROL SULF 0.083% NEB SOLN 3 ML NEB NEB SCH (06:29)
--- NOTE | 2018-11-10 07:02 | NUR ---
RECEIVED PATIENT RESTING IN BED. NO ACUTE DISTRESS NOTED. DENIES PAIN OR DISCOMFORT AT THIS TIME. CALL LIGHT WITHIN REACH. BED IN THE LOWEST POSITION.
[2018-11-10 07:25] VITALS: BP 133/83
[2018-11-10] MEDS: INSULIN REGULAR, HUMAN 100 UNIT/1 ML 3ML VIAL SQ SCH (07:30)
[2018-11-10] MEDS: GLIPIZIDE 5 MG TAB PO SCH (09:07)
[2018-11-10] MEDS: AMIODARONE HCL 200 MG TAB PO SCH (09:08)
[2018-11-10] MEDS: DULOXETINE HCL 30 MG DELAYED RELEASE PO SCH (09:08)
[2018-11-10] MEDS: CEFTRIAXONE SOD 1 GM/NS 50 ML 50 ML IV SCH (09:08)
[2018-11-10] MEDS: LEVOTHYROXINE SODIUM 100 MCG/VIAL IV SCH (09:08)
[2018-11-10] MEDS: PANTOPRAZOLE 40 MG 10ML VIAL IV SCH (09:08)
[2018-11-10] MEDS: SERTRALINE HCL 50 MG TAB PO SCH (09:09)
[2018-11-10] MEDS: METOPROLOL TARTRATE 50 MG TAB PO SCH (09:09)
[2018-11-10] MEDS: GABAPENTIN 300 MG CAP PO SCH (09:09)
[2018-11-10] MEDS: MONTELUKAST SODIUM 10 MG TAB PO SCH (09:09)
--- NOTE | 2018-11-10 09:46 | Discharge Summary ---
DISCHARGE MEDICATIONS: 1. Amiodarone 200 mg p.o. every day. 2. Aspirin 81 mg a day. 3. Omnicef 300 mg twice a day. 4. Cymbalta 30 mg twice daily. 5. Eliquis 5 mg p.o. b.i.d. 6. Neurontin 300 mg p.o. b.i.d. 7. Glipizide. 8. Lantus insulin 25 units subcutaneous every evening. 9. Metformin 1000 mg p.o. b.i.d. 10. Synthroid 112 mcg p.o. every day. 11. Metoclopramide 10 mg p.o. q.a.c. and nightly p.r.n. 12. Metoprolol 50 mg b.i.d. 13. Montelukast 10 mg p.o. daily. 14. Omeprazole 20 mg a day. 15. Simvastatin 20 mg a day. 16. Trazodone 50 mg at night. RADIOGRAPHIC DATA: 1. CT scan of the chest shows an improving right lower lobe consolidation consistent with prior pneumonia. 2. CT scan of the soft tissue neck shows epiglottitis and pharyngitis. CONSULTING PHYSICIAN: Dr. Gann of otolaryngology. HISTORY OF PRESENT ILLNESS: Patient is a 58-year-old man. He has a history of pneumonia in September. He came in complaining of worsening congestion. He noted severe sore throat and cough. He did not complain of hemoptysis. HOSPITAL COURSE: The patient was admitted. He was started on IV antibiotics. He had a CT scan of the neck that did show epiglottitis and some pharyngitis. He was seen by ENT. The patient remained n.p.o. He received IV fluids and antibiotics. He improved and his diet was gradually advanced. A repeat swallowing evaluation that was done that showed resolution of his difficulty swallowing. DISPOSITION: Patient will be discharged home. He will follow up with Dr. Sevilla in 1 week. LOGAN SEVILLA MD Job#: [id number]
--- NOTE | 2018-11-10 10:50 | NUR ---
RECEIVED DISCHARGE ORDER FROM MD. PATIENT IS IN STABLE CONDITION. IV LINE TO RIGHT FOREARM DC'D WITH TIP INTACT, PRESSURE APPLIED, NO BLEEDING NOTED. DISCHARGE TEACHING PROVIDED, PATIENT VERBALIZED UNDERSTANDING. ALL PERSONAL ITEMS AND DISCHARGE FOLDER ON HAND WHICH INCLUDES DC PAPERWORK/PRESCRIPTIONS. PATIENT ACCOMPANIED TO PRIVATE AUTO VIA WHEELCHAIR BY STAFF.
--- NOTE | 2018-11-10 13:11 | Diagnostic Imaging Report ---
PROCEDURE: X-RAY MODIFIED BARIUM SWALLOW COMPARISON: Modified barium swallow 11/04/2018. INDICATION: History of aspiration. Now status post treatment of epiglottitis. Radiation Details: Fluoroscopy time: 1.4 minutes Cumulative dose: 9.1 mGy DISCUSSION: Fluoroscopic examination was performed in conjunction with speech pathology during swallowing a variety of thin and thick liquid consistencies. Provided images demonstrate laryngeal penetration and trace aspiration, decreased from the prior study. There is trace pharyngeal residue. CONCLUSION: Modified barium swallow demonstrating laryngeal penetration and trace aspiration, decreased from the prior study. Please refer to the speech pathology report for further details. Signed by: Dr. Myrna Spaulding MD on 11/10/2018 1:08 PM
[2018-11-11] MEDS ORDERED: PANTOPRAZOLE SOD 40 MG TABEC PO SCH (07:30)
== END 2018-11-10 10:50 | disposition home or self-care (01) | DRG 871 ==
LOC: ER 04:56 → ERHOLD 06:24 → MED/SURG2 11-05 16:26
PROVIDERS: ADMIT Internal Medicine Critical Care Medicine; ATTEND Internal Medicine Critical Care Medicine
DX: A41.9 Sepsis, unspecified organism (principal); J69.0 Pneumonitis due to inhalation of food and vomit; N17.9 Acute kidney failure, unspecified; J05.10 Acute epiglottitis without obstruction; R65.20 Severe sepsis without septic shock; I48.0 Paroxysmal atrial fibrillation; G47.33 Obstructive sleep apnea (adult) (pediatric); E11.65 Type 2 diabetes mellitus with hyperglycemia; E11.22 Type 2 diabetes mellitus with diabetic chronic kidney disease; I12.9 Hypertensive chronic kidney disease with stage 1 through stage 4 chronic kidney disease, or unspecified chronic kidney disease; N18.9 Chronic kidney disease, unspecified; E03.9 Hypothyroidism, unspecified; I48.91 Unspecified atrial fibrillation; Z87.891 Personal history of nicotine dependence; Z83.3 Family history of diabetes mellitus; Z82.49 Family history of ischemic heart disease and other diseases of the circulatory system; Z79.4 Long term (current) use of insulin; J03.90 Acute tonsillitis, unspecified; G40.409 Other generalized epilepsy and epileptic syndromes, not intractable, without status epilepticus; E66.9 Obesity, unspecified; Z68.38 Body mass index [BMI] 38.0-38.9, adult; B95.3 Streptococcus pneumoniae as the cause of diseases classified elsewhere
CPT/HCPCS: 36415; 70491; 71045; 71260; 74230; 80053; 82550; 82553; 82948; 83518; 83605; 84439; 84443; 84484; 85025; 85610; 85730; 87040; 87070; 87071; 87186; 87205; 87400; 87449; 94640; 99285; J0456; J0696; J1100; J1650; J2930; J3370; J7030; Q9967

== ENCOUNTER → 2019-03-26 | Outpatient (CLI) | payer BC ==
[~2019-03-26] MED LIST changes: +CYMBALTA30 MG PO; +METOPROLOL TART50 MG PO; +PRAVASTATIN SOD40 MG PO; +TRAZODONE HCL50 MG PO
== END ==
LOC: CARD 13:55
PROVIDERS: ATTEND Family Medicine
DX: I73.9 Peripheral vascular disease, unspecified (principal)
CPT/HCPCS: 93922; 93925

== ENCOUNTER 2021-05-28 11:55 | Inpatient (IN) | payer BC ==
[~2021-05-28] VITALS: Ht 177.8 cm; Wt 108.4 kg
[2021-05-28] MEDS ORDERED: SODIUM CHLORIDE 0.9% 1000ML 1,000 ML IV STA (12:31)
[2021-05-28 13:02] LABS: BASOPHILS % 0.2 % (0.0-1.0); EOSINOPHILS # (AUTO) 0.3 (0.0-0.4); EOSINOPHILS % 2.3 % (0.0-6.0); HEMATOCRIT 48.2 % (38.2-49.6); HEMOGLOBIN 16.2 g/dL (14.0-18.0); LYMPHOCYTES # (AUTO) 4.3 (1.0-3.2); MEAN CORPUSCULAR HEMOGLOBIN 31.9 pg (28-32); MEAN CORPUSCULAR HGB CONC 33.6 g/dL (31-35); MEAN CORPUSCULAR VOLUME 94.9 fL (81-99); MONOCYTES # (AUTO) 0.7 (0.2-0.8); MONOCYTES % 6.3 % (4.4-11.3); NEUTROPHILS # (AUTO) 5.7 (2.1-6.9); NEUTROPHILS % 51.9 % (38.7-80.0); PLATELET COUNT 263 x10e3/uL (140-360); RED BLOOD COUNT 5.08 x10e6/uL (4.3-5.7); RED CELL DISTRIBUTION WIDTH 12.9 % (11.7-14.4)
[2021-05-28 13:17] LABS: ALANINE AMINOTRANSFERASE 275 IU/L (0-55); ALBUMIN 4.2 g/dL (3.5-5.0); ALBUMIN/GLOBULIN RATIO 0.7 (0.8-2.0); ALKALINE PHOSPHATASE 74 IU/L (40-150); ANION GAP 13.9 mmol/L (8-16); BLOOD UREA NITROGEN 35 mg/dL (7-26); BUN/CREATININE RATIO 18 (6-25); CALCIUM 10.2 mg/dL (8.4-10.2); CARBON DIOXIDE 24 mmol/L (22-29); CHLORIDE 102 mmol/L (98-107); CREATINE KINASE 48 IU/L (30-200); EST GLOMERULAR FILTRATION RATE 36 ML/MIN (60-); GLUCOSE 188 mg/dL (74-118); LIPASE 90 U/L (8-78); MAGNESIUM 1.8 MG/DL (1.3-2.1); POTASSIUM 4.9 mmol/L (3.5-5.1); SODIUM 135 mmol/L (136-145)
[2021-05-28 14:17] LABS: CLARITY,URINE SL CLOUDY (CLEAR); COLOR,URINE AMBER (YELLOW)
[2021-05-28 14:18] LABS: KETONES,URINE NEGATIVE (NEGATIVE); LEUKOCYTE ESTERASE ,URINE NEGATIVE (NEGATIVE); NITRITE,URINE NEGATIVE (NEGATIVE); PROTEIN,URINE DIPSTICK 1+ (NEGATIVE); URINE UROBILINOGEN 0.2 mg/dL (0.2 - 1)
[2021-05-28 14:30] LABS: BACTERIA,URINE RARE /HPF
[2021-05-28 18:16] VITALS: BP 108/70
[2021-05-28] MEDS ORDERED: DEXTROSE 50% SYRINGE 50 ML IV PRN (20:30)
[2021-05-28 20:37] LABS: CREATINE KINASE MB 0.5 ng/mL (0-5.0)
[2021-05-28 20:39] VITALS: BP 107/74
[2021-05-28] MEDS: INSULIN REGULAR, HUMAN 100 UNIT/1 ML SQ SCH (21:00)
[2021-05-28 21:46] VITALS: BP 107/74
[2021-05-29] VITALS (8 sets, daily range): BP systolic 95–147; BP diastolic 58–93
[2021-05-29 04:52] LABS: BASOPHILS % 0.3 % (0.0-1.0); EOSINOPHILS # (AUTO) 0.2 (0.0-0.4); EOSINOPHILS % 1.5 % (0.0-6.0); HEMATOCRIT 42.8 % (38.2-49.6); HEMOGLOBIN 14.6 g/dL (14.0-18.0); LYMPHOCYTES # (AUTO) 5.1 (1.0-3.2); LYMPHOCYTES % 40.1 % (18.0-39.1); MEAN CORPUSCULAR HEMOGLOBIN 32.4 pg (28-32); MEAN CORPUSCULAR HGB CONC 34.1 g/dL (31-35); MEAN CORPUSCULAR VOLUME 94.9 fL (81-99); MONOCYTES % 7.8 % (4.4-11.3); NEUTROPHILS # (AUTO) 6.4 (2.1-6.9); PLATELET COUNT 216 x10e3/uL (140-360); RED BLOOD COUNT 4.51 x10e6/uL (4.3-5.7); RED CELL DISTRIBUTION WIDTH 12.9 % (11.7-14.4)
[2021-05-29] MEDS: SODIUM CHLORIDE 0.9% 1000ML 1,000 ML IV SCH ×3 (04:56→16:30)
[2021-05-29] MEDS: ACETAMINOPHEN 325 MG TAB PO PRN ×2 (04:58→23:30)
[2021-05-29] MEDS ORDERED: ACETAMINOPHEN 325 MG TAB ONE (05:01)
[2021-05-29 05:21] LABS: ALBUMIN 3.7 g/dL (3.5-5.0); ALBUMIN/GLOBULIN RATIO 0.7 (0.8-2.0); ANION GAP 13.6 mmol/L (8-16); CALCIUM 9.2 mg/dL (8.4-10.2); CREATININE, SERUM 1.73 mg/dL (0.72-1.25); POTASSIUM 4.6 mmol/L (3.5-5.1)
[2021-05-29 05:49] LABS: CREATINE KINASE MB 0.3 ng/mL (0-5.0)
[2021-05-29] MEDS ORDERED: LEVOTHYROXINE SODIUM 75 MCG TAB PO SCH (06:00)
[2021-05-29 06:31] LABS: THYROID STIMULATING HORMONE 0.122 uIU/mL (0.350-4.940)
[2021-05-29] MEDS: INSULIN REGULAR, HUMAN 100 UNIT/1 ML SQ SCH ×4 (07:30→20:28)
[2021-05-29] MEDS: PANTOPRAZOLE SOD 40 MG TABEC PO SCH (09:00)
[2021-05-29] MEDS ORDERED: METOPROLOL TARTRATE 50 MG TAB PO SCH (09:00)
[2021-05-29] MEDS: MONTELUKAST SODIUM 10 MG TAB PO SCH (09:00)
[2021-05-29] MEDS: APIXABAN 5 MG TABLET PO SCH ×2 (09:00→16:24)
[2021-05-29] MEDS ORDERED: AMIODARONE HCL 200 MG TAB PO SCH (09:00)
[2021-05-29] MEDS: ASPIRIN 81 MG CHEW TAB PO SCH (09:00)
[2021-05-29] MEDS: CEFTRIAXONE 1 GM in SODIUM CHLORIDE 0.9% 50ML 50 ML IV SCH (12:00)
[2021-05-29 12:36] LABS: CREATINE KINASE MB 0.3 ng/mL (0-5.0)
[2021-05-29] MEDS ORDERED: ONDANSETRON HCL INJ 2MG/ML 2ML 2 MG/ML VIAL ONE (13:21)
[2021-05-29] MEDS: ONDANSETRON HCL INJ 2MG/ML 2ML 2 MG/ML VIAL IV PRN (17:12)
[2021-05-29] MEDS ORDERED: AMIODARONE HCL 200 MG TAB PO NR (18:30)
[2021-05-29] MEDS: METRONIDAZOLE 500MG/NS 100ML 100 ML IV SCH (21:29)
[2021-05-30] VITALS (8 sets, daily range): BP systolic 107–148; BP diastolic 60–89
[2021-05-30 04:47] LABS: BASOPHILS % 0.3 % (0.0-1.0); EOSINOPHILS % 0.1 % (0.0-6.0); HEMATOCRIT 38.9 % (38.2-49.6); LYMPHOCYTES # (AUTO) 4.3 (1.0-3.2); MEAN CORPUSCULAR HEMOGLOBIN 32.5 pg (28-32); MEAN CORPUSCULAR HGB CONC 33.4 g/dL (31-35); MEAN CORPUSCULAR VOLUME 97.3 fL (81-99); MONOCYTES % 8.2 % (4.4-11.3); NEUTROPHILS # (AUTO) 6.5 (2.1-6.9); PLATELET COUNT 157 x10e3/uL (140-360); RED CELL DISTRIBUTION WIDTH 12.6 % (11.7-14.4)
[2021-05-30] MEDS: METRONIDAZOLE 500MG/NS 100ML 100 ML IV SCH ×3 (05:06→22:25)
[2021-05-30] MEDS: LEVOTHYROXINE SODIUM 100 MCG TAB PO SCH (05:06)
[2021-05-30 05:10] LABS: ALBUMIN 3.4 g/dL (3.5-5.0); ALBUMIN/GLOBULIN RATIO 0.7 (0.8-2.0); ANION GAP 11.9 mmol/L (8-16); CALCIUM 9.6 mg/dL (8.4-10.2); CREATININE, SERUM 1.42 mg/dL (0.72-1.25); POTASSIUM 3.9 mmol/L (3.5-5.1)
[2021-05-30] MEDS: SODIUM CHLORIDE 0.9% 1000ML 1,000 ML IV SCH ×3 (05:55→22:30)
[2021-05-30] MEDS: INSULIN REGULAR, HUMAN 100 UNIT/1 ML SQ SCH ×4 (07:30→20:12)
[2021-05-30] MEDS: APIXABAN 5 MG TABLET PO SCH ×2 (10:28→17:00)
[2021-05-30] MEDS: PANTOPRAZOLE SOD 40 MG TABEC PO SCH (10:28)
[2021-05-30] MEDS: MONTELUKAST SODIUM 10 MG TAB PO SCH (10:28)
[2021-05-30] MEDS: ASPIRIN 81 MG CHEW TAB PO SCH (10:28)
[2021-05-30] MEDS: CEFTRIAXONE 1 GM in SODIUM CHLORIDE 0.9% 50ML 50 ML IV SCH (10:28)
[2021-05-30] MEDS: DULOXETINE HCL 30 MG DELAYED RELEASE PO SCH (17:00)
[2021-05-30] MEDS: ONDANSETRON HCL INJ 2MG/ML 2ML 2 MG/ML VIAL IV PRN (19:45)
[2021-05-30] MEDS ORDERED: TRAZODONE HCL 50 MG TAB PO PRN (21:00)
[2021-05-30] MEDS: ACETAMINOPHEN 325 MG TAB PO PRN (22:25)
[2021-05-31] VITALS (8 sets, daily range): BP systolic 132–157; BP diastolic 66–82
[2021-05-31 04:55] LABS: BASOPHILS % 0.4 % (0.0-1.0); EOSINOPHILS % 0.3 % (0.0-6.0); HEMATOCRIT 38.6 % (38.2-49.6); HEMOGLOBIN 12.7 g/dL (14.0-18.0); LYMPHOCYTES # (AUTO) 2.4 (1.0-3.2); LYMPHOCYTES % 31.1 % (18.0-39.1); MEAN CORPUSCULAR HEMOGLOBIN 32.6 pg (28-32); MEAN CORPUSCULAR HGB CONC 32.9 g/dL (31-35); MEAN CORPUSCULAR VOLUME 99.2 fL (81-99); MONOCYTES # (AUTO) 0.6 (0.2-0.8); MONOCYTES % 7.7 % (4.4-11.3); NEUTROPHILS # (AUTO) 4.7 (2.1-6.9); NEUTROPHILS % 60.2 % (38.7-80.0); PLATELET COUNT 143 x10e3/uL (140-360); RED BLOOD COUNT 3.89 x10e6/uL (4.3-5.7); RED CELL DISTRIBUTION WIDTH 12.6 % (11.7-14.4)
[2021-05-31] MEDS: METRONIDAZOLE 500MG/NS 100ML 100 ML IV SCH ×3 (05:25→21:58)
[2021-05-31 05:26] LABS: ALBUMIN 3.4 g/dL (3.5-5.0); ALBUMIN/GLOBULIN RATIO 0.8 (0.8-2.0); ANION GAP 14.8 mmol/L (8-16); CALCIUM 9.1 mg/dL (8.4-10.2); CREATININE, SERUM 1.2 mg/dL (0.72-1.25); POTASSIUM 3.8 mmol/L (3.5-5.1)
[2021-05-31] MEDS: LEVOTHYROXINE SODIUM 100 MCG TAB PO SCH (06:45)
[2021-05-31] MEDS: INSULIN REGULAR, HUMAN 100 UNIT/1 ML SQ SCH ×4 (07:30→21:00)
[2021-05-31] MEDS: SODIUM CHLORIDE 0.9% 1000ML 1,000 ML IV SCH ×2 (08:30→16:30)
[2021-05-31] MEDS: APIXABAN 5 MG TABLET PO SCH ×2 (09:00→16:30)
[2021-05-31] MEDS: MONTELUKAST SODIUM 10 MG TAB PO SCH (09:00)
[2021-05-31] MEDS: DULOXETINE HCL 30 MG DELAYED RELEASE PO SCH ×2 (09:00→16:30)
[2021-05-31] MEDS: CEFTRIAXONE 1 GM in SODIUM CHLORIDE 0.9% 50ML 50 ML IV SCH (09:00)
[2021-05-31] MEDS: ASPIRIN 81 MG CHEW TAB PO SCH (09:00)
[2021-05-31] MEDS: PANTOPRAZOLE SOD 40 MG TABEC PO SCH (09:00)
[2021-05-31] MEDS: ONDANSETRON HCL INJ 2MG/ML 2ML 2 MG/ML VIAL IV PRN (21:59)
[2021-06-01] VITALS (9 sets, daily range): BP systolic 131–149; BP diastolic 66–87
[2021-06-01] MEDS: METRONIDAZOLE 500MG/NS 100ML 100 ML IV SCH ×3 (05:53→22:25)
[2021-06-01] MEDS: SODIUM CHLORIDE 0.9% 1000ML 1,000 ML IV SCH ×2 (05:53→14:30)
[2021-06-01] MEDS: LEVOTHYROXINE SODIUM 100 MCG TAB PO SCH (05:53)
[2021-06-01] MEDS: INSULIN REGULAR, HUMAN 100 UNIT/1 ML SQ SCH ×4 (07:30→21:00)
[2021-06-01] MEDS: PANTOPRAZOLE SOD 40 MG TABEC PO SCH (09:17)
[2021-06-01] MEDS: MONTELUKAST SODIUM 10 MG TAB PO SCH (09:17)
[2021-06-01] MEDS: ASPIRIN 81 MG CHEW TAB PO SCH (09:17)
[2021-06-01] MEDS: DULOXETINE HCL 30 MG DELAYED RELEASE PO SCH ×2 (09:17→16:46)
[2021-06-01] MEDS: CEFTRIAXONE 1 GM in SODIUM CHLORIDE 0.9% 50ML 50 ML IV SCH (09:17)
[2021-06-01] MEDS: APIXABAN 5 MG TABLET PO SCH ×2 (09:17→16:46)
[2021-06-02] VITALS (7 sets, daily range): BP systolic 131–155; BP diastolic 66–90
[2021-06-02] MEDS: SODIUM CHLORIDE 0.9% 1000ML 1,000 ML IV SCH ×3 (00:45→20:30)
[2021-06-02 05:50] LABS: BASOPHILS % 0.3 % (0.0-1.0); EOSINOPHILS # (AUTO) 0.3 (0.0-0.4); EOSINOPHILS % 4.4 % (0.0-6.0); HEMOGLOBIN 11.4 g/dL (14.0-18.0); LYMPHOCYTES # (AUTO) 2.2 (1.0-3.2); LYMPHOCYTES % 30.3 % (18.0-39.1); MEAN CORPUSCULAR HEMOGLOBIN 32.2 pg (28-32); MEAN CORPUSCULAR HGB CONC 35.6 g/dL (31-35); MEAN CORPUSCULAR VOLUME 90.4 fL (81-99); MONOCYTES # (AUTO) 0.5 (0.2-0.8); MONOCYTES % 6.4 % (4.4-11.3); NEUTROPHILS # (AUTO) 4.2 (2.1-6.9); NEUTROPHILS % 58.2 % (38.7-80.0); PLATELET COUNT 130 x10e3/uL (140-360); RED BLOOD COUNT 3.54 x10e6/uL (4.3-5.7); RED CELL DISTRIBUTION WIDTH 12.5 % (11.7-14.4)
[2021-06-02] MEDS: LEVOTHYROXINE SODIUM 100 MCG TAB PO SCH (05:54)
[2021-06-02] MEDS: METRONIDAZOLE 500MG/NS 100ML 100 ML IV SCH ×3 (05:54→21:43)
[2021-06-02 06:04] LABS: ALBUMIN/GLOBULIN RATIO 0.8 (0.8-2.0); ANION GAP 12.4 mmol/L (8-16); CALCIUM 8.5 mg/dL (8.4-10.2); CREATININE, SERUM 1.03 mg/dL (0.72-1.25); POTASSIUM 3.4 mmol/L (3.5-5.1)
[2021-06-02] MEDS: INSULIN REGULAR, HUMAN 100 UNIT/1 ML SQ SCH ×4 (07:30→21:00)
[2021-06-02] MEDS ORDERED: POTASSIUM BICARBONATE/CIT AC 20 MEQ TABLET.EFF PO ONE (08:45)
[2021-06-02] MEDS: DULOXETINE HCL 30 MG DELAYED RELEASE PO SCH ×2 (11:36→17:00)
[2021-06-02] MEDS: CEFTRIAXONE 1 GM in SODIUM CHLORIDE 0.9% 50ML 50 ML IV SCH (11:36)
[2021-06-02] MEDS: PANTOPRAZOLE SOD 40 MG TABEC PO SCH (11:36)
[2021-06-02] MEDS: MONTELUKAST SODIUM 10 MG TAB PO SCH (11:36)
[2021-06-03] VITALS (7 sets, daily range): BP systolic 133–151; BP diastolic 65–78
[2021-06-03] MEDS: SODIUM CHLORIDE 0.9% 1000ML 1,000 ML IV SCH ×2 (04:46→17:16)
[2021-06-03] MEDS: LEVOTHYROXINE SODIUM 100 MCG TAB PO SCH (05:03)
[2021-06-03] MEDS: METRONIDAZOLE 500MG/NS 100ML 100 ML IV SCH ×3 (05:03→23:30)
[2021-06-03] MEDS: INSULIN REGULAR, HUMAN 100 UNIT/1 ML SQ SCH ×4 (07:30→21:00)
[2021-06-03] MEDS: PANTOPRAZOLE SOD 40 MG TABEC PO SCH (10:11)
[2021-06-03] MEDS: DULOXETINE HCL 30 MG DELAYED RELEASE PO SCH ×2 (10:11→17:16)
[2021-06-03] MEDS: MONTELUKAST SODIUM 10 MG TAB PO SCH (10:11)
[2021-06-03] MEDS: CEFTRIAXONE 1 GM in SODIUM CHLORIDE 0.9% 50ML 50 ML IV SCH (10:11)
[2021-06-04] VITALS (8 sets, daily range): BP systolic 139–148; BP diastolic 67–82
[2021-06-04] MEDS: SODIUM CHLORIDE 0.9% 1000ML 1,000 ML IV SCH ×3 (04:42→22:31)
[2021-06-04] MEDS: LEVOTHYROXINE SODIUM 100 MCG TAB PO SCH (04:43)
[2021-06-04 05:35] LABS: BASOPHILS % 0.4 % (0.0-1.0); EOSINOPHILS # (AUTO) 0.4 (0.0-0.4); EOSINOPHILS % 4.3 % (0.0-6.0); HEMATOCRIT 32.3 % (38.2-49.6); HEMOGLOBIN 11.5 g/dL (14.0-18.0); LYMPHOCYTES # (AUTO) 2.4 (1.0-3.2); LYMPHOCYTES % 28.4 % (18.0-39.1); MEAN CORPUSCULAR HEMOGLOBIN 32.4 pg (28-32); MEAN CORPUSCULAR HGB CONC 35.6 g/dL (31-35); MONOCYTES # (AUTO) 0.5 (0.2-0.8); MONOCYTES % 5.5 % (4.4-11.3); NEUTROPHILS # (AUTO) 5.2 (2.1-6.9); NEUTROPHILS % 61.2 % (38.7-80.0); PLATELET COUNT 153 x10e3/uL (140-360); RED BLOOD COUNT 3.55 x10e6/uL (4.3-5.7); RED CELL DISTRIBUTION WIDTH 12.7 % (11.7-14.4)
[2021-06-04] MEDS: METRONIDAZOLE 500MG/NS 100ML 100 ML IV SCH ×3 (06:09→22:31)
[2021-06-04 06:24] LABS: ALBUMIN 2.9 g/dL (3.5-5.0); ALBUMIN/GLOBULIN RATIO 0.9 (0.8-2.0); ANION GAP 13.4 mmol/L (8-16); CALCIUM 8.3 mg/dL (8.4-10.2); CREATININE, SERUM 0.94 mg/dL (0.72-1.25); POTASSIUM 3.4 mmol/L (3.5-5.1)
[2021-06-04] MEDS: INSULIN REGULAR, HUMAN 100 UNIT/1 ML SQ SCH ×4 (07:30→21:00)
[2021-06-04] MEDS: DULOXETINE HCL 30 MG DELAYED RELEASE PO SCH ×2 (09:00→16:39)
[2021-06-04] MEDS: CEFTRIAXONE 1 GM in SODIUM CHLORIDE 0.9% 50ML 50 ML IV SCH (09:00)
[2021-06-04] MEDS: MONTELUKAST SODIUM 10 MG TAB PO SCH (09:00)
[2021-06-04] MEDS: PANTOPRAZOLE SOD 40 MG TABEC PO SCH (09:00)
[2021-06-04] MEDS ORDERED: MIDAZOLAM HCL 2 MG/2 ML VIAL ONE ×2 (10:13→12:04)
[2021-06-04] MEDS ORDERED: SODIUM CHLORIDE 0.9% 1000ML 1,000 ML ONE (10:13)
[2021-06-04] MEDS ORDERED: FENTANYL CITRATE/PF 100MCG/2 ML INJ ONE (10:13)
[2021-06-04] MEDS ORDERED: LIDOCAINE HCL 2% LOCAL 20 ML VIAL ONE ×2 (10:13→11:23)
[2021-06-04] MEDS ORDERED: SODIUM CHLORIDE 0.9% 500ML 1,000 ML ONE (10:13)
[2021-06-04] MEDS ORDERED: Vancomycin IV 1 GM VIAL ONE (12:02)
[2021-06-04] MEDS ORDERED: HYDROCODONE/APAP 5MG-325MG TAB PO PRN (12:45)
[2021-06-04] MEDS ORDERED: POTASSIUM CHLORIDE 20 MEQ TAB CR PO ONE (14:15)
[2021-06-04] MEDS ORDERED: Cefazolin 1 GM in SODIUM CHLORIDE 0.9% 50ML 50 ML IV ONE (17:00)
[2021-06-05] VITALS: BP 155/86
[2021-06-05 00:28] LABS: FERRITIN 86.71 ng/mL (21.81-274.66)
[2021-06-05 04:00] VITALS: BP 141/65
[2021-06-05 05:39] LABS: BASOPHILS % 0.5 % (0.0-1.0); EOSINOPHILS # (AUTO) 0.4 (0.0-0.4); EOSINOPHILS % 5.8 % (0.0-6.0); HEMATOCRIT 32.7 % (38.2-49.6); HEMOGLOBIN 11.5 g/dL (14.0-18.0); LYMPHOCYTES % 26.4 % (18.0-39.1); MEAN CORPUSCULAR HEMOGLOBIN 31.9 pg (28-32); MEAN CORPUSCULAR HGB CONC 35.2 g/dL (31-35); MEAN CORPUSCULAR VOLUME 90.8 fL (81-99); MONOCYTES # (AUTO) 0.5 (0.2-0.8); MONOCYTES % 6.6 % (4.4-11.3); NEUTROPHILS # (AUTO) 4.5 (2.1-6.9); NEUTROPHILS % 60.4 % (38.7-80.0); PLATELET COUNT 173 x10e3/uL (140-360); RED CELL DISTRIBUTION WIDTH 13.1 % (11.7-14.4)
[2021-06-05] MEDS: LEVOTHYROXINE SODIUM 100 MCG TAB PO SCH (05:55)
[2021-06-05] MEDS: METRONIDAZOLE 500MG/NS 100ML 100 ML IV SCH (05:55)
[2021-06-05 06:12] LABS: ANION GAP 11.3 mmol/L (8-16); CALCIUM 8.4 mg/dL (8.4-10.2); CREATININE, SERUM 0.91 mg/dL (0.72-1.25); MAGNESIUM 1.8 MG/DL (1.3-2.1); POTASSIUM 3.3 mmol/L (3.5-5.1)
[2021-06-05] MEDS: INSULIN REGULAR, HUMAN 100 UNIT/1 ML SQ SCH ×2 (07:30→11:30)
[2021-06-05 08:00] VITALS: BP 147/85
[2021-06-05 08:25] VITALS: BP 147/85
[2021-06-05] MEDS: DULOXETINE HCL 30 MG DELAYED RELEASE PO SCH (09:00)
[2021-06-05] MEDS: MONTELUKAST SODIUM 10 MG TAB PO SCH (09:00)
[2021-06-05] MEDS ORDERED: IRON SUCROSE 100 MG in SODIUM CHLORIDE 0.9% 100 ML 100 ML IV SCH (09:00)
[2021-06-05] MEDS: CEFTRIAXONE 1 GM in SODIUM CHLORIDE 0.9% 50ML 50 ML IV SCH (09:00)
[2021-06-05] MEDS: PANTOPRAZOLE SOD 40 MG TABEC PO SCH (09:00)
[2021-06-05] MEDS ORDERED: SODIUM CHLORIDE 0.9% 50ML 50 ML ONE (09:15)
[2021-06-05] MEDS ORDERED: POTASSIUM CHLORIDE 20 MEQ TAB CR PO ONE (11:30)
[2021-06-05 11:40] VITALS: BP 164/89
[2021-06-05] MEDS ORDERED: Cefazolin 1 GM in SODIUM CHLORIDE 0.9% 50ML 50 ML IV ONE (12:00)
[2021-06-05] MEDS ORDERED: SYNTHROID100 MCG PO (12:10)
[2021-06-05] MEDS ORDERED: MINOCYCLINE HCL50 MG PO (12:10)
[2021-06-05] MEDS ORDERED: ONDANSETRON HCL 4 MG ORAL DISINTEGRATING TAB PO PRN (14:15)
== END 2021-06-05 16:48 | disposition home or self-care (01) | DRG 243 ==
LOC: ER 12:16 → ERHOLD 15:34 → MED/SURG2 18:05
PROVIDERS: ADMIT Internal Medicine; ATTEND Internal Medicine
PROC: 0JH606Z Insertion of Pacemaker, Dual Chamber into Chest Subcutaneous Tissue and Fascia, Open Approach (ICD-10-PCS; principal; 2021-05-28)
PROC: 02H63JZ Insertion of Pacemaker Lead into Right Atrium, Percutaneous Approach (ICD-10-PCS; 2021-05-28)
PROC: 02HK3JZ Insertion of Pacemaker Lead into Right Ventricle, Percutaneous Approach (ICD-10-PCS; 2021-05-28)
DX: I49.5 Sick sinus syndrome (principal); N17.9 Acute kidney failure, unspecified; R19.7 Diarrhea, unspecified; I48.0 Paroxysmal atrial fibrillation; Z79.01 Long term (current) use of anticoagulants; Z79.899 Other long term (current) drug therapy; E78.5 Hyperlipidemia, unspecified; K80.80 Other cholelithiasis without obstruction; E03.9 Hypothyroidism, unspecified; F39 Unspecified mood [affective] disorder; Z86.16 Personal history of COVID-19; D50.9 Iron deficiency anemia, unspecified; R63.4 Abnormal weight loss; Z68.34 Body mass index [BMI] 34.0-34.9, adult; E11.65 Type 2 diabetes mellitus with hyperglycemia
CPT/HCPCS: 33208; 36415; 70450; 71045; 74176; 75820; 76705; 78227; 80048; 80053; 80061; 81001; 82550; 82553; 82607; 82728; 82746; 82948; 83036; 83540; 83690; 83735; 83880; 84443; 84466; 84484; 85025; 85045; 85379; 85651; 86039; 86140; 86431; 86644; 86645; 86663; 86664; 86665; 86777; 86778; 87040; 87385; 93005; 93306; 97139; 99152; 99153; 99251; 99284; A9537; C1785; C1898; J0690; J0696; J1756; J1817; J2001; J2250; J2405; J3010; J3370; J7030; J7040; U0002

== ENCOUNTER → 2021-09-11 | Outpatient (CLI) | payer BC ==
[~2021-09-11] MED LIST changes: +MINOCYCLINE HCL50 MG PO; +SYNTHROID100 MCG PO
== END ==
LOC: RAD 13:03
PROVIDERS: ATTEND Family Medicine
DX: M75.92 Shoulder lesion, unspecified, left shoulder (principal)